=== PATIENT | male | born 1945 | race African-American/Black ===

== ENCOUNTER 2020-10-17 21:11 | Emergency (ER) | payer MEDICARE, MEDICAID ==
--- NOTE | 2020-10-17 22:54 | ER Document Report ---
ED Medical Screen (RME) - General Chief Complaint: Wrist Injury Stated Complaint: RIGHT HAND INJURY Time Seen by Provider: 10/17/20 22:45 Primary Care Provider: RAIMUNDO VALDEZ FNP [Primary Care Provider] - Follow up as needed Mode of Arrival: Wheelchair Notes: Patient is a 74-year-old male brought emergency room by family complaint of right wrist pain and swelling. Family states that patient was getting up to go to the bathroom on the way back to the bedroom he tripped and fell was a mechanical fall on an outstretched arm he has a deformity to his right wrist. Denies any other injuries or loss of consciousness. Physical examination shows patient to be a frail-appearing 74-year-old male though in no apparent distress does appear uncomfortable. Cardiac exam shows patient to have a regular rate and rhythm at 74 beats a minute. No auscultation of any murmurs. Lungs: Bilateral breath sounds decreased throughout no rhonchi rales or wheeze. Upper extremity right side. Examination shows patient to have a deformity at the distal portion of the radius and ulna moderate swelling with a slight apparent dorsal angulation but no broken skin no sign of a open fracture. 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 I have greeted and performed a rapid initial assessment of this patient. A comprehensive ED assessment and evaluation of the patient, analysis of test results and completion of the medical decision making process will be conducted by additional ED providers. Dictation of this chart was performed using voice recognition software; therefore, there may be some unintended grammatical errors. We are placing patient in a arm board to give him some support until after x- rays can be obtained. I am placing patient in the back at this time because I believe that this may be one that he has to be sedated and have a reduction. - Related Data Allergies/Adverse Reactions: No Known Allergies Allergy (Verified 10/17/20 22:45) Home Medications: unable to recall Past Medical History - Social History Frequency of alcohol use: None Drug Abuse: None - Past Medical History Cardiac Medical History: Reports: Hx Hypercholesterolemia, Hx Hypertension Neurological Medical History: Reports: Hx Seizures Endocrine Medical History: Denies: Hx Diabetes Mellitus Type 1, Hx Diabetes Mellitus Type 2 Psychiatric Medical History: Reports: Hx Depression - Immunizations Hx Diphtheria, Pertussis, Tetanus Vaccination: Yes Physical Exam - Vital signs Vitals: Temp Pulse Resp BP Pulse Ox 98.2 F 74 18 145/73 H 99 10/17/20 21:39 10/17/20 21:39 10/17/20 21:39 10/17/20 21:39 10/17/20 21:39 Course - Vital Signs Vital signs: Temp Pulse Resp BP Pulse Ox 98.2 F 74 18 145/73 H 99 10/17/20 21:39 10/17/20 21:39 10/17/20 21:39 10/17/20 21:39 10/17/20 21:39 Doctor's Discharge - Discharge Referrals: RAIMUNDO VALDEZ FNP [Primary Care Provider] - Follow up as needed
[2020-10-17] MEDS ORDERED: HYDROCODONE/ACETAMINOPHEN 5-325 MG TABLET PO ONE (22:55)
[2020-10-17] MEDS ORDERED: HYDROCODONE/ACETAMINOPHEN 5-325 MG TABLET ONE (22:56)
--- NOTE | 2020-10-17 23:45 | RADIOLOGY REPORT (SQ) ---
EXAM DESCRIPTION: X-ray right wrist 3 views COMPLETED DATE/TME: 10/17/2020 23:11 CLINICAL HISTORY: 74 years, Male, Deformity wrist fracture COMPARISON: None. NUMBER OF VIEWS: TECHNIQUE: LIMITATIONS: None. FINDINGS: There is fracture of the distal radius, with dorsal angulation. I see no additional fractures. Mineralization of bone appears normal. IMPRESSION: Fracture of the distal radius. copyright 2010 [facility]- All Rights Reserved
--- NOTE | 2020-10-18 01:52 | ER Document Report ---
ED General - General Chief Complaint: Wrist Injury Stated Complaint: RIGHT HAND INJURY Time Seen by Provider: 10/17/20 22:45 Primary Care Provider: RAIMUNDO VALDEZ FNP [Primary Care Provider] - Follow up as needed CANDY FONSECA DO [ACTIVE STAFF] - Follow up as needed Mode of Arrival: Wheelchair - HPI Notes: Chief Complaint: Right wrist pain Historian: History obtained from patient and son HPI: This is a 74-year-old male presents to the ER with his son complaining of right wrist pain after a fall at home this evening. Patient was walking to the bathroom and tripped over a child's toy and fell on outstretched hand. No head injury or loss of consciousness. Pain diffusely to the wrist. No open wounds. Denies any other injuries. No treatments tried. ROS: Constitutional: no fevers. HEENT: no KOHLI, sore throat, or vision changes. CV: no chest pain or palpitations. Resp: no cough or SOB. GI: no abdominal pain, or n/v/d. : no dysuria, hematuria, or incont. MSK: Right wrist pain and swelling Skin: no rashes or itching. Neuro: no seizures, weakness, numbness, or confusion. Hematological: no ecchymosis or easy bleeding. Endocrine: no polyuria/polydipsia, no heat/cold intolerance. Psych: no SI/HI, AH/VH or memory loss. PMHx: Reviewed and agree as charted by RN. PSHx: Reviewed and agree as charted by RN. SOCHx: Reviewed and agree as charted by RN. FHX: No significant familial comorbid conditions directly related to patient complaint Current Medications: Reviewed and agree with the patient medications as charted by the RN. Allergies: Reviewed and agree with the listed allergies as charted by the RN Physical Exam: Vitals: Reviewed in chart as documented by RN. General: Alert and in NAD. Head: Normocephalic; atraumatic. Negative hemotympanums bilateral no otorrhea no rhinorrhea. Eyes: PERRLA, Conjunctivae clear sclerae non-icteric bilat ENT: no soft palate swelling or uvular deviation Neck: trachea midline, no unilateral swelling/tenderness/lymphadenopathy CV: RRR, no M/R/G; symmetric distal pulses Resp: respirations even and unlabored, CTA bilat. GI: abd soft and nondistended. NTTP. normal BS. no masses/HSM. no CVAT bilat MSK: RUE-mild diffuse swelling to the dorsum of the wrist no obvious deformity, no open wounds. Diffuse tenderness. Radial pulse 2+. Cap refill less than 3 seconds distally. Patient able to range all digits. Limited range of motion due to pain. Full range of motion of elbow and shoulder. Intact distally. None CTL spine tenderness or deformity. Skin: warm, moist, good turgor. no rash/lesions Neuro: Alert and oriented X 4. following CN 2-12 intact. no unilateral weakness/numbness Psych: No SI/HI or AH/VH. ED Results: Medical Decision-Making: Medical Decision-making/Differential Diagnosis: Consider various etiologies including but not limited to skin/soft tissue structure injury, MSK injury, strain/sprain, fracture, dislocation, bursitis, tendonitis, contusion, ect Plan-x-ray wrist obtained obvious distal radius fracture. Very mild mild displacement does not appear intra-articular patient is neurovascularly intact.. Does not appear to benefit from any major reduction. Plan to place a sugar tong splint and sling and refer patient to orthopedics for follow-up. Will send pain medication for the patient instructed him to rice and be nonweightbearing at home with right upper extremity. Return factors discussed. This course of action was discussed with the patient and/or family. They were amenable to this, verbalized understanding, and were without further questions. - Related Data Allergies/Adverse Reactions: No Known Allergies Allergy (Verified 10/17/20 22:45) Home Medications: unable to recall Past Medical History - Social History Smoking Status: Former Smoker Frequency of alcohol use: None Drug Abuse: None Family History: Reviewed & Not Pertinent Patient has homicidal ideation: No - Past Medical History Cardiac Medical History: Reports: Hx Hypercholesterolemia, Hx Hypertension Neurological Medical History: Reports: Hx Seizures Endocrine Medical History: Denies: Hx Diabetes Mellitus Type 1, Hx Diabetes Mellitus Type 2 Psychiatric Medical History: Reports: Hx Depression - Immunizations Hx Diphtheria, Pertussis, Tetanus Vaccination: Yes Physical Exam - Vital signs Vitals: Temp Pulse Resp BP Pulse Ox 98.2 F 74 18 145/73 H 99 10/17/20 21:39 10/17/20 21:39 10/17/20 21:39 10/17/20 21:39 10/17/20 21:39 Course - Vital Signs Vital signs: Temp Pulse Resp BP Pulse Ox 98.2 F 74 18 145/73 H 99 10/17/20 21:39 10/17/20 21:39 10/17/20 21:39 10/17/20 21:39 10/17/20 21:39 - Laboratory Results Critical Laboratory Results Reviewed: No Critical Results - Radiology Results Critical Radiology Results Reviewed: No Critical Results Discharge - Discharge Clinical Impression: Fall Qualifiers: Encounter type: initial encounter Qualified Code(s): W19.XXXA - Unspecified fall, initial encounter Right wrist fracture Qualifiers: Encounter type: initial encounter Fracture type: closed Qualified Code(s): S62.101A - Fracture of unspecified carpal bone, right wrist, initial encounter for closed fracture Condition: Stable Disposition: HOME, SELF-CARE Additional Instructions: call orthopedics- Dr Fonseca on Tuesday to schedule appointment for follow that week. keep splint clean and dry. no weight bearing or lifting w/ right hand. rest, ice, and elevate wrist. ice 20 minutes every 1-2 hours. may also take motrin 600mg every 8 hours. return to the ER if your condition worsens. Prescriptions: Hydrocodone/Acetaminophen [[place] 5-325 mg Tablet] 1 tab PO Q6HP PRN #12 tablet PRN Reason: Referrals: RAIMUNDO VALDEZ FNP [Primary Care Provider] - Follow up as needed CANDY FONSECA DO [ACTIVE STAFF] - Follow up as needed
[2020-10-18 02:28] VITALS: BP 159/74
== END 2020-10-18 02:27 | disposition home or self-care (01) ==
LOC: ER 21:11
DX: S62.101A Fracture of unspecified carpal bone, right wrist, initial encounter for closed fracture (principal); W01.0XXA Fall on same level from slipping, tripping and stumbling without subsequent striking against object, initial encounter; Y92.009 Unspecified place in unspecified non-institutional (private) residence as the place of occurrence of the external cause; E78.00 Pure hypercholesterolemia, unspecified; I10 Essential (primary) hypertension
CPT/HCPCS: 99283; 73110; A9270

== ENCOUNTER 2020-11-15 23:01 | Inpatient (IN) | payer MEDICARE, MEDICAID ==
[2020-11-15 23:54] LABS: ABSOLUTE EOSINOPHILS # (AUTO) 0.1 10^3/uL (0.0-0.6); ABSOLUTE LYMPHOCYTES (AUTO) 0.5 10^3/uL (0.5-4.7); ABSOLUTE NEUT (AUTO) 6.8 10^3/uL (1.7-8.2); BASOPHILS % (AUTO) 0.2 % (0-2); HEMATOCRIT 37.2 % (37.9-51.0); HEMOGLOBIN 12.2 g/dL (13.5-17.0); LYMPHOCYTES % (AUTO) 6.4 % (13-45); MEAN CORPUSCULAR HEMOGLOBIN 27.5 pg (27.0-33.4); MEAN CORPUSCULAR HGB CONC 32.8 g/dL (32.0-36.0); MEAN CORPUSCULAR VOLUME 84 fl (80-97); MONOCYTES % (AUTO) 0.7 % (3-13); PLATELET COUNT 243 10^3/uL (150-450); RED BLOOD COUNT 4.44 10^6/uL (4.35-5.55); RED CELL DISTRIBUTION WIDTH 16.4 % (11.5-14.0); SEGMENTED NEUTROPHILS % (AUTO) 91.7 % (42-78); TOTAL CELLS COUNTED % (AUTO) 100 %; WHITE BLOOD COUNT 7.4 10^3/uL (4.0-10.5)
[2020-11-16] MEDS ORDERED: LEVETIRACETAM 1000 MG/NACL-ISO 1,000 MG/100 ML RTUPB IV ONE
--- NOTE | 2020-11-16 00:02 | ER Document Report ---
ED General - General Chief Complaint: Seizure Stated Complaint: SEIZURE/AMS Time Seen by Provider: 11/15/20 23:52 Notes: Patient is a 75-year-old male who comes to the emergency department for chief complaint of a seizure. Patient does have a history of epilepsy, patient reportedly had a seizure that lasted between 2 and 5 minutes per family members who were witnessing. No fall or trauma reported. EMS states that upon arrival patient was confused and postictal but has since returned to baseline. Patient has no complaints but patient was found to have initial oxygen saturation of 84% on room air. Patient denies oxygen use at home, smoking, COPD, asthma, shortness of breath, cough, fever, chest pain, or any current complaints. He also denies headache. No vomiting reported. Patient has a history of epilepsy and takes Keppra, hypertension, hyperlipidemia. He lives at home with family. - Related Data Allergies/Adverse Reactions: No Known Allergies Allergy (Verified 11/16/20 02:35) Past Medical History - General Information source: Patient - Social History Smoking Status: Former Smoker Drug Abuse: None Lives with: Family Family History: Reviewed & Not Pertinent - Past Medical History Cardiac Medical History: Reports: Hx Hypercholesterolemia, Hx Hypertension Neurological Medical History: Reports: Hx Seizures Endocrine Medical History: Denies: Hx Diabetes Mellitus Type 1, Hx Diabetes Mellitus Type 2 Psychiatric Medical History: Reports: Hx Depression - Immunizations Hx Diphtheria, Pertussis, Tetanus Vaccination: Yes Review of Systems - Review of Systems Constitutional: No symptoms reported EENT: No symptoms reported Cardiovascular: No symptoms reported Respiratory: See HPI Gastrointestinal: No symptoms reported Genitourinary: No symptoms reported Male Genitourinary: No symptoms reported Musculoskeletal: No symptoms reported Skin: No symptoms reported Hematologic/Lymphatic: No symptoms reported Neurological/Psychological: See HPI Physical Exam - Vital signs Vitals: Resp 19 11/15/20 23:00 - Notes Notes: GENERAL: Alert, interacts well. No acute distress. HEAD: Normocephalic, atraumatic. EYES: Pupils equal, round, and reactive to light. Extraocular movements intact. ENT: Oral mucosa moist, tongue midline and uninjured. Oropharynx unremarkable. Airway patent. NECK: Full range of motion. Supple. Trachea midline. No lymphadenopathy. LUNGS: Decreased breath sounds bilaterally but more significantly on the left. No tachypnea or labored breathing. Speaks without difficulty HEART: Regular rate and rhythm. No murmur ABDOMEN: Soft, non-tender. Non-distended. EXTREMITIES: Moves all 4 extremities spontaneously. No edema, normal radial and dorsalis pedis pulses bilaterally. No cyanosis. BACK: no cervical, thoracic, lumbar midline tenderness. No saddle anesthesia, normal distal neurovascular exam. Moves all extremities in full range of motion. NEUROLOGICAL: Alert and oriented x3. Normal speech. Cranial nerves II through XII grossly intact. Strength 5/5 in all extremities. PSYCH: Normal affect, normal mood. SKIN: Warm, dry, normal turgor. No rashes or lesions noted. Course - Re-evaluation Re-evalutation: On my exam patient is alert, conversational, oriented, cooperative. He does not have any signs of trauma, no reported trauma, however he is hypoxic in the 80s and he does have decreased breath sounds. Will obtain chest x-ray. Could be aspiration or pre-existing problem. Patient denies headache or any current complaints. Chest x-ray shows large left-sided pneumothorax, patient was immediately transferred to trauma bay, he has not had any change on my evaluation again, he is not tachycardic, oxygen is the same. Alerted Dr. Tilley who states he will place a chest tube. Chest tube placed by Dr. Tilley and Dr. De La Cruz, confirmation shows near resolution and good placement. CBC, chemistry nonspecific. CAT scans performed because of concern worse trauma based on the pneumothorax. There was a delay in the CAT scans being performed, however CAT scan of the head, neck without concerning findings. CAT scan of the chest shows small pneumothorax still existing, acute fractures of the left seventh, eighth, ninth ribs. No acute findings otherwise. Patient without decompensation on the monitor. I have discussed with daughter at length. Patient still having bloody output, has had about 1300 mL output. Patient desaturates to about 92% on room air but I suspect this is secondary to COPD. 11/16/20 04:30 Called and discussed with Dr. De La Cruz, general surgery, he is currently involved in surgery and will have to be contacted later. Dr. De La Cruz called back, reviewed imaging, he recommends that because patient is elderly, was found down with seizure, has multiple comorbidities, that p atient be admitted to the medical team with surgical consult. 11/16/20 04:[address] Jeffery, he states he will evaluate the patient. Dr. Jeffery accepted patient to [facility] full admission. - Vital Signs Vital signs: Temp Pulse Resp BP Pulse Ox 97.9 F 15 128/69 H 94 11/16/20 02:46 11/16/20 05:01 11/16/20 05:01 11/16/20 05:01 - Laboratory Results Result Diagrams: 11/15/20 23:23 11/16/20 00:29 Laboratory Results Interpreted: 11/15/20 11/15/20 11/16/20 23:23 23:23 00:29 Hgb 12.2 L Hct 37.2 L RDW 16.4 H Lymph % (Auto) 6.4 L [place] % (Auto) 0.7 L Absolute Monos (auto) 0.0 L Seg Neutrophils % 91.7 H Carbonic Acid 1.01 L ABG pCO2 33.7 L ABG pO2 63.3 L ABG Total CO2 22.4 L ABG O2 Saturation 92.8 L Chloride 110 H Urine Protein Urine Blood Urine Nitrite Ur Leukocyte Esterase 11/16/20 03:54 Hgb Hct RDW Lymph % (Auto) [place] % (Auto) Absolute Monos (auto) Seg Neutrophils % Carbonic Acid ABG pCO2 ABG pO2 ABG Total CO2 ABG O2 Saturation Chloride Urine Protein 30 H Urine Blood LARGE H Urine Nitrite POSITIVE H Ur Leukocyte Esterase SMALL H Critical Laboratory Results Reviewed: No Critical Results - Radiology Results Critical Radiology Results Reviewed: Yes Attending or Supervising Physician who Reviewed Radiology: Critical Care Note - Critical Care Note Total time excluding time spent on procedures (mins): 40 - Traumatic pneumoth orax, hypoxia Comments: Please allow 40 minutes of critical care time for evaluation and management of patient with traumatic pneumothorax and hypoxia. Interventions included oxygen therapy, treatment for epilepsy, treatment for UTI. Time spent performing consultation with surgery, performing multiple reevaluations, and time spent discussing with family. Time spent discussing with surgery and hospitalist multiple times for admission. Discharge - Discharge Clinical Impression: Seizure Traumatic pneumothorax Qualifiers: Encounter type: initial encounter Qualified Code(s): S27.0XXA - Traumatic pneumothorax, initial encounter Multiple rib fractures Qualifiers: Encounter type: initial encounter Fracture type: closed Laterality: left Qualified Code(s): S22.42XA - Multiple fractures of ribs, left side, initial encounter for closed fracture Urinary tract infection Qualifiers: Urinary tract infection type: site unspecified Hematuria presence: with hematuria Qualified Code(s): N39.0 - Urinary tract infection, site not specified Condition: Stable Disposition: ADMITTED INPATIENT Admitting Provider: Unit Admitted: [facility]
[2020-11-16 00:19] LABS: ARTERIAL BLOOD BASE EXCESS -2.5 mmol/L; ARTERIAL BLOOD FIO2 4 L; ARTERIAL BLOOD H2CO3 1.01 mmol/L (1.05-1.35); ARTERIAL BLOOD HCO3 21.3 mmol/L (20-24); ARTERIAL BLOOD O2 SATURATION 92.8 % (94-98); ARTERIAL BLOOD PCO2 33.7 mmHg (35-45); ARTERIAL BLOOD PH 7.42 (7.35-7.45); ARTERIAL BLOOD PO2 63.3 mmHg (80-100); ARTERIAL BLOOD TOTAL CO2 22.4 mmol/L (23-27)
--- NOTE | 2020-11-16 00:49 | RADIOLOGY REPORT (SQ) ---
EXAM DESCRIPTION: Site: CHEST SINGLE VIEW RP: XR CHEST 1 VIEW CLINICAL HISTORY: 75 years Male; hypoxia; COMPARISON: None. FINDINGS: Lungs: Lungs are clear, with no focal infiltrate, pneumothorax, or pleural effusion. There is a large left pneumothorax with collapse of the left lower lobe and much of the left upper lobe. Right lung remains clear, without pneumothorax or pleural effusion. Mediastinum: No shift or widening. Bones: Bony structures are unremarkable. IMPRESSION: 1. Large left pneumothorax, estimated 60%. No mediastinal shift.
[2020-11-16 00:56] LABS: ALBUMIN 3.6 g/dL (3.5-5.0); ALKALINE PHOSPHATASE 113 U/L (38-126); ANION GAP 12 (5-19); ASPARTATE AMINO TRANSFERASE 36 U/L (17-59); BILIRUBIN,DIRECT 0.4 mg/dL (0.0-0.4); BILIRUBIN,TOTAL 0.7 mg/dL (0.2-1.3); BLOOD UREA NITROGEN 18 mg/dL (7-20); CALCIUM 9.1 mg/dL (8.4-10.2); CARBON DIOXIDE 22 mmol/L (22-30); CHLORIDE 110 mmol/L (98-107); GLUCOSE 80 mg/dL (75-110); POTASSIUM 3.7 mmol/L (3.6-5.0); TOTAL PROTEIN 7.1 g/dL (6.3-8.2)
[2020-11-16 00:59] LABS: ALCOHOL < 10 mg/dL (NONE DETECTED)
[2020-11-16] MEDS ORDERED: LIDOCAINE 1% INJ (10 MG/ML) 10 ML MDV INJ ONE (01:08)
[2020-11-16] MEDS ORDERED: ETOMIDATE INJ/PF 20 MG/10 ML SDV IV ONE (01:08)
--- NOTE | 2020-11-16 02:17 | RADIOLOGY REPORT (SQ) ---
CHEST X-RAY 1 VIEW on 11/16/2020 at 1:44 AM CLINICAL INDICATION: Status post left chest tube placement COMPARISON: 11/16/2020 at 12:18 AM FINDINGS: There is a new left chest tube in place with essential resolution of the prior left pneumothorax. The right lateral chest and right costophrenic angle is not imaged on this exam. There is persistent left lower lung opacity consistent with atelectasis and/or pneumonia. There is a rounded lucency apparently in the left lower lung that may represent bulla but also could represent cavitary abnormality. Consider CT follow-up. Heart is within normal limits for size. Vascular calcification is noted in the aorta. IMPRESSION: 1. New left chest tube in place with resolution of left pneumothorax. 2. Continued left lower lung atelectasis and/or pneumonia. 3. Rounded lucency in the left lower lung that may represent a bulla or cavitary abnormality. Consider CT follow-up.
--- NOTE | 2020-11-16 02:30 | Operative Report ---
Operative Report DATE OF SURGERY: 11/16/20 PREOPERATIVE DIAGNOSIS: 1. Large left pneumothorax. 2. Status post seizure POSTOPERATIVE DIAGNOSIS: Same OPERATION: Placement of 26 Belgian thoracostomy tube and interpretation of postoperative chest x-ray SURGEON: DANYA DE LA CRUZ ANESTHESIA: Local TISSUE REMOVED OR ALTERED: None COMPLICATIONS: None ESTIMATED BLOOD LOSS: Scant INTRAOPERATIVE FINDINGS: See below PROCEDURE: Dr. De La Cruz was in the emergency department assessing other patients when he discovered a emergency department team was attempting to place a chest tube in the above named patient. It was apparent that assistance was required. Findings were significant for patient laying supine, minimally responsive, with vital signs present, with a small operative incision made in the left lateral chest approximately ICS 7, mid axillary line. The existing 26 Belgian chest tube was inserted subcutaneously into the axilla. Using the same skin incision, a opening was made in the intercostal space with a Felicita clamp, there was immediate gush of air. The chest tube was now inserted into the left pleural space, with the tip ending in the apex, and the sentinel approximately 10 cm from the skin. The chest tube is secured to the skin including a pursestring wrap with 0 silk suture. Appropriate chest tube dressing was applied. The chest tube was attached to Pleur-evac, with suction, with resultant evacuation of a significant amount of air. Approximately 150 cc of serous pleural fluid was evacuated as well. Portable supine chest x-ray obtained showing expansion of the left lung, with a thoracostomy tube in appropriate position. Of note the chest x-ray was obtained in the supine position, therefore it is uncertain whether residual pneumothorax remained. Care will be handed off to the hospitalist service with surgery consulting.
--- NOTE | 2020-11-16 03:54 | RADIOLOGY REPORT (SQ) ---
CLINICAL HISTORY: ?trauma during seizure COMPARISON: 08/16/2017. TECHNIQUE: CT HEAD WITHOUT IV CONTRAST on 11/16/2020 1:32 AM FACTORY REPRESENTATIVE This exam was performed according to our departmental dose-optimization program, which includes automated exposure control, adjustment of the mA and/or kV according to patient size and/or use of iterative reconstruction technique. FINDINGS: There is no acute hemorrhage, mass effect or midline shift. There is bifrontal encephalomalacia. There is mild posterior right cerebellar encephalomalacia. There is no hydrocephalus. There is mild diffuse cerebral atrophy. The calvarium is intact. Orbits and globes are unremarkable. The paranasal sinuses are clear. Mastoid air cells are clear. IMPRESSION: No acute intracranial findings.
--- NOTE | 2020-11-16 04:00 | RADIOLOGY REPORT (SQ) ---
CLINICAL HISTORY: ?trauma during seizure COMPARISON: None. TECHNIQUE: CT CERVICAL SPINE WITHOUT IV CONTRAST on 11/16/2020 1:32 AM MEDICAL SALES CONSULTANT This exam was performed according to our departmental dose-optimization program, which includes automated exposure control, adjustment of the mA and/or kV according to patient size and/or use of iterative reconstruction technique. FINDINGS: There is no acute fracture. Vertebral body heights are preserved. Alignment is anatomic. There is moderate narrowing of the C3-4, C4-5 and C6-7 discs. There is severe narrowing of the C5-6 disc. The upper lungs, there is a minimal apical pneumothorax with a chest tube in place. There is moderate upper lung emphysema. IMPRESSION: No acute fracture or subluxation.
--- NOTE | 2020-11-16 04:04 | RADIOLOGY REPORT (SQ) ---
CLINICAL HISTORY: ?trauma during seizure COMPARISON: None. TECHNIQUE: CT CHEST WITH IV CONTRAST on 11/16/2020 1:32 AM PICKLING GRADER. MIPS reconstructions were generated. This exam was performed according to our departmental dose-optimization program, which includes automated exposure control, adjustment of the mA and/or kV according to patient size and/or use of iterative reconstruction technique. MIP images were generated. FINDINGS: Thoracic aorta is normal in course and caliber without aneurysm or dissection. Pulmonary arteries are adequately opacified without acute or chronic filling defects. The heart is normal in size. There is no pericardial effusion. Intrathoracic lymph nodes are not enlarged. There is a small left pleural effusion. There is a tiny left pneumothorax with left chest tube in place. There is subcutaneous air along the left lateral chest wall. Central airways are patent. There is moderate mostly upper lung centrilobular emphysema. There is airspace disease and atelectasis involving much of the left lower lobe as well as the posterior left upper lobe. There is a pneumatocele in the lower left lung measuring 3.8 cm. There are no acute abnormalities within the limited images of the upper abdomen. There are fractures of the posterior lateral left seventh, eighth and ninth ribs. IMPRESSION: Left lower rib fractures with small hydropneumothorax with a chest tube in place. Probable left basilar pulmonary contusion and pneumatocele.
[2020-11-16 04:15] LABS: APPEARANCE,URINE CLOUDY; BILIRUBIN,URINE NEGATIVE (NEGATIVE); COLOR,URINE YELLOW; GLUCOSE, URINE NEGATIVE (NEGATIVE); KETONES,URINE NEGATIVE (NEGATIVE); LEUKOCYTE ESTERASE,URINE SMALL (NEGATIVE); NITRITE,URINE POSITIVE (NEGATIVE); PROTEIN,URINE 30 mg/dL (NEGATIVE); URINE SPECIFIC GRAVITY 1.033; UROBILINOGEN,URINE NEGATIVE mg/dL (<2.0)
[2020-11-16] MEDS ORDERED: CEFTRIAXONE 1 GM/D5W RTU 1 GM/50 ML RTUPB IV ONE (04:32)
[2020-11-16] MEDS ORDERED: NORMAL SALINE 1000 ML 1,000 ML IV ONE (04:32)
[2020-11-16] MEDS ORDERED: ONDANSETRON HCL INJ/PF 4 MG/2 ML SDV IV PRN (06:15)
[2020-11-16] MEDS ORDERED: ACETAMINOPHEN 325 MG TABLET PO PRN (06:15)
[2020-11-16] MEDS ORDERED: MORPHINE SULFATE 10 MG/ML INJ IV PRN (06:39)
--- NOTE | 2020-11-16 06:49 | PDOC H&P ---
History of Present Illness Admission Date/PCP: 11/16/20 06:17 PERLA BECK Patient complains of: Witnessed seizure History of Present Illness: MELBA MCKEON JR is a 75 year old male with a history of seizure disorder and hypertension who presents to the ED with a plan episode of witnessed seizure. Patient was noted to have an episode of seizure which lasted for about 3 to 5 minutes while she was sitting on his chair last night pain daughter called EMS immediately and was brought into the emergency department for further evaluation. On arrival to the ED patient was in a postictal phase that few minutes later he came back to his baseline according to his daughter was at his bedside. His daughter stated that patient never had a fall, head injury, or vomiting. During further evaluation at the ED patient was noted to have low oxygen saturation of in the mid 80s while in room air but he was not in respiratory distress, was not using accessory respiratory muscles and his other vital signs where stable. He had decreased air entry on the left hemichest and there was concern for possible aspiration during the episode of seizure and chest x-ray was obtained for further evaluation. Chest x-ray showed large left- sided pneumothorax involving about 60% and chest tube was inserted by surgery at the ED. Follow-up chest x-ray done showed interval expansion of his lungs. Currently patient is alert and oriented but unable to give detailed history due to sedation hold anesthesia used for procedure. He denies shortness of breath, dizziness, palpitation, nausea or vomiting. He is requiring 2 L intranasal oxygen to maintain a saturation of around mid 90s. Past Medical History Cardiac Medical History: Reports: Hyperlipidema, Hypertension Neurological Medical History: Reports: Seizures Endocrine Medical History: Denies: Diabetes Mellitus Type 1, Diabetes Mellitus Type 2 Psychiatric Medical History: Reports: Depression Social History Information Source: Patient, Relative, Emergency Med Personnel Lives with: Family Smoking Status: Never Smoker - Advance Directive Resuscitation Status: Full Code Family History Family History: Reviewed & Not Pertinent Parental Family History Reviewed: Yes Children Family History Reviewed: Yes Sibling(s) Family History Reviewed.: Yes Medication/Allergy Home Medications: Amlodipine Besylate [Norvasc 10 mg Tablet] 10 mg PO DAILY 11/16/20 Atorvastatin Calcium [Lipitor 20 mg Tablet] 20 mg PO QHS 11/16/20 Cetirizine HCl [Zyrtec 10 mg Tablet] 10 mg PO DAILY 11/16/20 Fluoxetine HCl 10 mg PO DAILY 11/16/20 Hydralazine HCl [Apresoline 25 mg Tablet] 25 mg PO BID 11/16/20 Levetiracetam [Keppra] 500 mg PO BID 11/16/20 Allergies/Adverse Reactions: No Known Allergies Allergy (Verified 11/16/20 02:35) Review of Systems ROS unobtainable: Due to mental status Constitutional: ABSENT: chills, fever(s), headache(s), weight gain, weight loss Eyes: ABSENT: visual disturbances Cardiovascular: ABSENT: chest pain, dyspnea on exertion, edema, orthropnea, palpitations Respiratory: PRESENT: as per HPI Gastrointestinal: ABSENT: abdominal pain, constipation, diarrhea, hematemesis, hematochezia, nausea, vomiting Genitourinary: ABSENT: dysuria, hematuria Musculoskeletal: ABSENT: joint swelling Integumentary: ABSENT: rash, wounds Neurological: PRESENT: as per HPI Endocrine: ABSENT: cold intolerance, heat intolerance, polydipsia, polyuria Hematologic/Lymphatic: ABSENT: easy bleeding, easy bruising Physical Exam Vital Signs: Temp Pulse Resp BP Pulse Ox 97.9 F 15 128/69 H 94 11/16/20 02:46 11/16/20 05:01 11/16/20 05:01 11/16/20 05:01 Intake & Output 11/14/20 11/15/20 11/16/20 06:59 06:59 06:59 Intake Total 1150 Balance 1150 Weight 47.8 kg Additional comments: GENERAL APPEARANCE: Patient is sleepy but easily arousable likely due to sedatives given during the procedure, in no acute distress HEENT: Normocephalic and atraumatic. No scleral icterus. Moist oral mucosa NECK: Supple. No lymphadenopathy or tenderness. No JVD CHEST: Chest tube in place on the left side. Has some mild tenderness on the left lower rib area LUNGS: Clear with good air entry bilaterally. No wheezing or crackles HEART: Regular rate and rhythm with normal S1 and S2. No murmurs, gallops, or rubs. ABDOMEN: Flat, soft, active bowel sounds, no direct or rebound tenderness. No organomegaly detected. EXTREMITIES: No cyanosis, clubbing, or edema. MUSCULOSKELETAL: No deformity, atrophy or swelling noted SKIN: Warm, dry, and well perfused. No lesions or rashes are noted. NEUROLOGIC: No focal sensory or motor deficits are noted. Results Laboratory Results: 11/15/20 23:23 11/16/20 00:29 11/15/20 11/15/20 11/15/20 23:23 23:23 23:23 WBC 7.4 RBC 4.44 Hgb 12.2 L Hct 37.2 L MCV 84 MCH 27.5 MCHC 32.8 RDW 16.4 H Plt Count 243 Seg Neutrophils % 91.7 H Carbonic Acid 1.01 L HCO3/H2CO3 Ratio 21:1 ABG pH 7.42 ABG pCO2 33.7 L ABG pO2 63.3 L ABG HCO3 21.3 ABG O2 Saturation 92.8 L ABG Base Excess -2.5 FiO2 4 L Sodium Cancelled Potassium Cancelled Chloride Cancelled Carbon Dioxide Cancelled Anion Gap Cancelled BUN Cancelled Creatinine Cancelled Est GFR ( Amer) Cancelled Est GFR (Non-Af Amer) Cancelled Glucose Cancelled Calcium Cancelled Magnesium Cancelled Total Bilirubin Cancelled AST Cancelled Alkaline Phosphatase Cancelled Total Protein Cancelled Albumin Cancelled Urine Color Urine Appearance Urine pH Ur Specific [place] Urine Protein Urine Glucose (UA) Urine Ketones Urine Blood Urine Nitrite Ur Leukocyte Esterase Urine WBC (Auto) Urine RBC (Auto) 11/16/20 11/16/20 00:29 03:54 WBC RBC Hgb Hct MCV MCH MCHC RDW Plt Count Seg Neutrophils % Carbonic Acid HCO3/H2CO3 Ratio ABG pH ABG pCO2 ABG pO2 ABG HCO3 ABG O2 Saturation ABG Base Excess FiO2 Sodium 143.8 Potassium 3.7 Chloride 110 H Carbon Dioxide 22 Anion Gap 12 BUN 18 Creatinine 0.90 Est GFR ( Amer) > 60 Est GFR (Non-Af Amer) Glucose 80 Calcium 9.1 Magnesium 2.0 Total Bilirubin 0.7 AST 36 Alkaline Phosphatase 113 Total Protein 7.1 Albumin 3.6 Urine Color YELLOW Urine Appearance CLOUDY Urine pH 5.0 Ur Specific [place] 1.033 Urine Protein 30 H Urine Glucose (UA) NEGATIVE Urine Ketones NEGATIVE Urine Blood LARGE H Urine Nitrite POSITIVE H Ur Leukocyte Esterase SMALL H Urine WBC (Auto) 39 Urine RBC (Auto) >182 11/16/20 00:29 Troponin I 0.014 Impressions: Chest X-Ray 11/16/20 01:29 IMPRESSION: 1. New left chest tube in place with resolution of left pneumothorax. 2. Continued left lower lung atelectasis and/or pneumonia. 3. Rounded lucency in the left lower lung that may represent a bulla or cavitary abnormality. Consider CT follow-up. Cervical Spine CT 11/16/20 01:32 IMPRESSION: No acute fracture or subluxation. Chest CT 11/16/20 01:32 IMPRESSION: Left lower rib fractures with small hydropneumothorax with a chest tube in place. Probable left basilar pulmonary contusion and pneumatocele. Head CT 11/16/20 01:32 IMPRESSION: No acute intracranial findings. Assessment and Plan - Diagnosis (1) Traumatic pneumothorax Qualifiers: Encounter type: initial encounter Qualified Code(s): S27.0XXA - Traumatic pneumothorax, initial encounter Is this a current diagnosis for this admission?: Yes Plan: Patient presents after an episode of seizure and likely had traumatic incident following that He also had right wrist fracture from a fall about 2 weeks back Was saturating mid 80s on room air on presentation Chest x-ray showed a large left-sided pneumothorax Status post chest tube insertion at the ED CT chest obtained following chest tube insertion showed interval expansion of the left lung and left lower lip fractures Continue chest tube care, avail incentive spirometry at bedside Surgery on board and follow-up with recommendations Consider pulmonary consult (2) Multiple rib fractures Qualifiers: Encounter type: initial encounter Fracture type: closed Laterality: left Qualified Code(s): S22.42XA - Multiple fractures of ribs, left side, initial encounter for closed fracture Is this a current diagnosis for this admission?: Yes Plan: Likely due to injury during seizure episode Currently s/p chest tube insertion for pneumothorax Continue optimally controlling pain Surgery also following and follow-up with recommendations (3) Seizure Is this a current diagnosis for this admission?: Yes Plan: Patient presents after an episode of seizure which lasted for 3 to 5 minutes at home Currently alert and oriented Patient with given a loading dose of Keppra at the ED Continue Keppra 500 mg IV twice daily Keppra level pending Continue seizure precaution, fall precaution and aspiration precaution (4) Urinary tract infection Qualifiers: Urinary tract infection type: site unspecified Hematuria presence: with hematuria Qualified Code(s): N39.0 - Urinary tract infection, site not specified; R31.9 - Hematuria, unspecified Is this a current diagnosis for this admission?: Yes Plan: UA shows signs of urinary tract infection Currently patient is on ceftriaxone Follow-up with blood culture and urine culture and sensitivity and adjust antibiotic as necessary (5) Hypertension Is this a current diagnosis for this admission?: Yes Plan: Blood pressure now is within acceptable range We will continue home medications - Time Time Spent with patient: 35 or more minutes Total Critical Time (Minutes): 55 Medications reviewed and adjusted accordingly: Yes Anticipated Discharge Disposition: Home, Self Care Anticipated Discharge Timeframe: within 72 hours - Inpatient Certification Based on my medical assessment, after consideration of the patient's comorbidities, presenting symptoms, or acuity I expect that the services needed warrant INPATIENT care.: Yes I certify that my determination is in accordance with my understanding of Medicare's requirements for reasonable and necessary INPATIENT services [42 CFR 412.3e].: Yes Medical Necessity: Significant Comorbidiites Make Outpatient Treatment Too Risky, Need For IV Fluids, Need For Continuous Telemetry Monitoring, Need for Pain Control, Need for IV Antibiotics, Need for Surgery, Risk of Complication if Not Cared For in Hospital Post Hospital Care: D/C or Transfer Summary
[2020-11-16 09:22] LABS: HEMATOCRIT 33.1 % (37.9-51.0); HEMOGLOBIN 10.9 g/dL (13.5-17.0); MEAN CORPUSCULAR HEMOGLOBIN 27.2 pg (27.0-33.4); MEAN CORPUSCULAR VOLUME 83 fl (80-97); PLATELET COUNT 207 10^3/uL (150-450); RED CELL DISTRIBUTION WIDTH 16.5 % (11.5-14.0)
[2020-11-16] MEDS: RINGERS SOLUTION,LACTATED 1,000 ML IV PRN ×2 (09:22→23:05)
[2020-11-16 09:29] LABS: ALBUMIN 2.9 g/dL (3.5-5.0); ALKALINE PHOSPHATASE 85 U/L (38-126); ANION GAP 7 (5-19); ASPARTATE AMINO TRANSFERASE 25 U/L (17-59); BILIRUBIN,DIRECT 0.2 mg/dL (0.0-0.4); BILIRUBIN,TOTAL 0.4 mg/dL (0.2-1.3); BLOOD UREA NITROGEN 16 mg/dL (7-20); CALCIUM 8.4 mg/dL (8.4-10.2); CARBON DIOXIDE 25 mmol/L (22-30); CHLORIDE 109 mmol/L (98-107); GLUCOSE 110 mg/dL (75-110)
[2020-11-16] MEDS ORDERED: LEVETIRACETAM 750 MG in NORMAL SALINE 100 ML IV SCH (10:00)
[2020-11-16 10:06] LABS: WHITE BLOOD COUNT 18.8 10^3/uL (4.0-10.5)
[2020-11-16 10:08] LABS: ABSOLUTE LYMPHOCYTES# (MANUAL) 0.9 10^3/uL (0.5-4.7); ABSOLUTE MONOCYTES # (MANUAL) 0.6 10^3/uL (0.1-1.4); BAND NEUTROPHILS % (MANUAL) 9 % (3-5); BASOPHILS % (MANUAL) 0 % (0-2); EOSINOPHILS % (MANUAL) 0 % (0-6); LYMPHOCYTES % (MANUAL) 4 % (13-45); MONOCYTES % (MANUAL) 3 % (3-13); SEGMENTED NEUTROPHILS % (MAN) 83 % (42-78); TOTAL CELLS COUNTED 100
[2020-11-16 10:11] LABS: ANISOCYTOSIS 1+; OVALOCYTES 1+; PLATELET COMMENT ADEQUATE
[2020-11-16] MEDS: FAMOTIDINE 20 MG TABLET PO SCH ×2 (10:16→21:12)
--- NOTE | 2020-11-16 14:10 | PDOC PROGRESS REPORT ---
Subjective Date:: 11/16/20 Reason For Visit: PNEUMOTHORAX S/P CHEST TUBE INSERTION Patient is now 12 hours status post admission status post found down, fall, post seizure, with left pneumothorax, and posterior left rib fractures, hemodynamically stable. Now awake and following commands. Physical Exam Vital Signs: Temp Pulse Resp BP Pulse Ox 98.2 F 20 126/86 H 96 11/16/20 09:00 11/16/20 10:01 11/16/20 10:01 11/16/20 10:01 Intake & Output 11/15/20 11/16/20 11/17/20 06:59 06:59 06:59 Intake Total 1150 100 Balance 1150 100 Weight 47.8 kg General appearance: PRESENT: no acute distress Respiratory exam: PRESENT: other - Chest tube hooked to Pleur-evac, with a suction, no demonstrable airleak. No subcutaneous emphysema. Pulmonary toilet poor Results Laboratory Results: 11/16/20 08:50 11/16/20 08:50 11/15/20 11/15/20 11/15/20 23:23 23:23 23:23 WBC 7.4 RBC 4.44 Hgb 12.2 L Hct 37.2 L MCV 84 MCH 27.5 MCHC 32.8 RDW 16.4 H Plt Count 243 Seg Neutrophils % 91.7 H Carbonic Acid 1.01 L HCO3/H2CO3 Ratio 21:1 ABG pH 7.42 ABG pCO2 33.7 L ABG pO2 63.3 L ABG HCO3 21.3 ABG O2 Saturation 92.8 L ABG Base Excess -2.5 FiO2 4 L Sodium Cancelled Potassium Cancelled Chloride Cancelled Carbon Dioxide Cancelled Anion Gap Cancelled BUN Cancelled Creatinine Cancelled Est GFR ( Amer) Cancelled Est GFR (Non-Af Amer) Cancelled Glucose Cancelled Calcium Cancelled Magnesium Cancelled Total Bilirubin Cancelled AST Cancelled Alkaline Phosphatase Cancelled Total Protein Cancelled Albumin Cancelled Urine Color Urine Appearance Urine pH Ur Specific [place] Urine Protein Urine Glucose (UA) Urine Ketones Urine Blood Urine Nitrite Ur Leukocyte Esterase Urine WBC (Auto) Urine RBC (Auto) 11/16/20 11/16/20 11/16/20 00:29 03:54 08:50 WBC 18.8 H D RBC 4.00 L Hgb 10.9 L Hct 33.1 L MCV 83 MCH 27.2 MCHC 33.0 RDW 16.5 H Plt Count 207 Seg Neutrophils % Not Reportable Carbonic Acid HCO3/H2CO3 Ratio ABG pH ABG pCO2 ABG pO2 ABG HCO3 ABG O2 Saturation ABG Base Excess FiO2 Sodium 143.8 Potassium 3.7 Chloride 110 H Carbon Dioxide 22 Anion Gap 12 BUN 18 Creatinine 0.90 Est GFR ( Amer) > 60 Est GFR (Non-Af Amer) Glucose 80 Calcium 9.1 Magnesium 2.0 Total Bilirubin 0.7 AST 36 Alkaline Phosphatase 113 Total Protein 7.1 Albumin 3.6 Urine Color YELLOW Urine Appearance CLOUDY Urine pH 5.0 Ur Specific [place] 1.033 Urine Protein 30 H Urine Glucose (UA) NEGATIVE Urine Ketones NEGATIVE Urine Blood LARGE H Urine Nitrite POSITIVE H Ur Leukocyte Esterase SMALL H Urine WBC (Auto) 39 Urine RBC (Auto) >182 11/16/20 08:50 WBC RBC Hgb Hct MCV MCH MCHC RDW Plt Count Seg Neutrophils % Carbonic Acid HCO3/H2CO3 Ratio ABG pH ABG pCO2 ABG pO2 ABG HCO3 ABG O2 Saturation ABG Base Excess FiO2 Sodium 141.2 Potassium 4.0 Chloride 109 H Carbon Dioxide 25 Anion Gap 7 BUN 16 Creatinine 0.85 Est GFR ( Amer) > 60 Est GFR (Non-Af Amer) Glucose 110 Calcium 8.4 Magnesium Total Bilirubin 0.4 AST 25 Alkaline Phosphatase 85 Total Protein 6.0 L Albumin 2.9 L Urine Color Urine Appearance Urine pH Ur Specific [place] Urine Protein Urine Glucose (UA) Urine Ketones Urine Blood Urine Nitrite Ur Leukocyte Esterase Urine WBC (Auto) Urine RBC (Auto) 11/16/20 11/16/20 00:29 08:50 Creatine Kinase 124 Troponin I 0.014 Impressions: Chest X-Ray 11/16/20 01:29 IMPRESSION: 1. New left chest tube in place with resolution of left pneumothorax. 2. Continued left lower lung atelectasis and/or pneumonia. 3. Rounded lucency in the left lower lung that may represent a bulla or cavitary abnormality. Consider CT follow-up. Cervical Spine CT 11/16/20 01:32 IMPRESSION: No acute fracture or subluxation. Chest CT 11/16/20 01:32 IMPRESSION: Left lower rib fractures with small hydropneumothorax with a chest tube in place. Probable left basilar pulmonary contusion and pneumatocele. Head CT 11/16/20 01:32 IMPRESSION: No acute intracranial findings. Assessment & Plan - Diagnosis (1) Traumatic pneumothorax Qualifiers: Encounter type: initial encounter Qualified Code(s): S27.0XXA - Traumatic pneumothorax, initial encounter Is this a current diagnosis for this admission?: Yes Plan: Impression: Patient 13 hours status post left thoracostomy tube placement for la rge pneumothorax, concomitant hemothorax, minimal, secondary to rib fractures 7, 8, 9 posteriorly. Doing well, no evidence of air leak suction. Plan: 1. Pulmonary toilet, coughing and deep breathing 2. We will check portable upright chest x-ray in a.m.; if stable, anticipate placing chest tube to waterseal. Of note patient has bilateral emphysematous disease, and large pneumatocele. (2) Hypertension Is this a current diagnosis for this admission?: Yes (3) Multiple rib fractures Qualifiers: Encounter type: initial encounter Fracture type: closed Laterality: left Qualified Code(s): S22.42XA - Multiple fractures of ribs, left side, initial encounter for closed fracture Is this a current diagnosis for this admission?: Yes (4) Seizure Is this a current diagnosis for this admission?: Yes - Time Anticipated Discharge Disposition: Home, Self Care Anticipated Discharge Timeframe: within 48 hours
[2020-11-16] MEDS: DOCUSATE SODIUM 100 MG CAPSULE PO SCH (17:21)
[2020-11-16] MEDS: HYDRALAZINE HCL 25 MG TABLET PO SCH (17:21)
[2020-11-16] MEDS: LEVETIRACETAM ORAL SOLN 500 MG/5 ML UDCUP PO SCH (21:11)
[2020-11-16] MEDS: ATORVASTATIN CALCIUM 20 MG TABLET PO SCH (21:12)
[2020-11-16] MEDS ORDERED: LEVETIRACETAM 500 MG/NACL-ISO 500 MG/100 ML RTUPB IV SCH ×2 (22:00)
[2020-11-16] MEDS ORDERED: CEFTRIAXONE 1 GM/D5W RTU 1 GM/50 ML RTUPB IV SCH (22:00)
[2020-11-16] MEDS ORDERED: LEVETIRACETAM 500 MG TABLET PO SCH (22:00)
[2020-11-17] MEDS ORDERED: RINGERS SOLUTION,LACTATED 1,000 ML IV PRN (04:15)
[2020-11-17 06:38] LABS: HEMATOCRIT 29.4 % (37.9-51.0); HEMOGLOBIN 10.1 g/dL (13.5-17.0); MEAN CORPUSCULAR HEMOGLOBIN 28.1 pg (27.0-33.4); MEAN CORPUSCULAR HGB CONC 34.2 g/dL (32.0-36.0); MEAN CORPUSCULAR VOLUME 82 fl (80-97); PLATELET COUNT 167 10^3/uL (150-450); RED BLOOD COUNT 3.58 10^6/uL (4.35-5.55); RED CELL DISTRIBUTION WIDTH 16.3 % (11.5-14.0); WHITE BLOOD COUNT 9.4 10^3/uL (4.0-10.5)
--- NOTE | 2020-11-17 09:28 | RADIOLOGY REPORT (SQ) ---
EXAM DESCRIPTION: CHEST SINGLE VIEW IMAGES COMPLETED DATE/TIME: 11/17/2020 9:17 am REASON FOR STUDY: Interval change in left lung COMPARISON: 11/16/2020 NUMBER OF VIEWS: One view. TECHNIQUE: Single frontal radiographic image of the chest acquired. LIMITATIONS: None. FINDINGS: LUNGS AND PLEURA: Left-sided chest tube remains in place. No pneumothorax is appreciated. Minimal left basilar atelectasis which is unchanged. The right lung field remains clear. MEDIASTINUM AND HILAR STRUCTURES: Stable heart size and mediastinal structures. HEART AND VASCULAR STRUCTURES: Stable appearance. BONES: Left-sided rib fractures are again noted. HARDWARE: None in the chest. OTHER: No other significant finding. IMPRESSION: STABLE APPEARANCE OF THE CHEST. TECHNICAL DOCUMENTATION: JOB ID: [id number] 2010 [employer]- All Rights Reserved Reading location - IP/workstation name: [email or web address]
[2020-11-17] MEDS ORDERED: FLUOXETINE HCL 20 MG CAPSULE PO SCH (10:00)
[2020-11-17] MEDS: LEVETIRACETAM ORAL SOLN 500 MG/5 ML UDCUP PO SCH ×2 (10:27→21:11)
[2020-11-17] MEDS: ENOXAPARIN SODIUM INJ 40 MG/0.4 ML DISP.SYRIN SUBCUT SCH (10:28)
[2020-11-17] MEDS: CETIRIZINE 10 MG TABLET PO SCH (10:28)
[2020-11-17] MEDS: DOCUSATE SODIUM 100 MG CAPSULE PO SCH ×2 (10:28→17:56)
[2020-11-17] MEDS: FLUOXETINE HCL 20 MG/5 ML UDCUP PO SCH (10:28)
[2020-11-17] MEDS: HYDRALAZINE HCL 25 MG TABLET PO SCH ×2 (10:28→17:56)
[2020-11-17] MEDS: FAMOTIDINE 20 MG TABLET PO SCH ×2 (10:28→21:11)
[2020-11-17 10:36] LABS: ANION GAP 6 (5-19); BLOOD UREA NITROGEN 12 mg/dL (7-20); CALCIUM 8.5 mg/dL (8.4-10.2); CARBON DIOXIDE 22 mmol/L (22-30); CHLORIDE 108 mmol/L (98-107); GLUCOSE 147 mg/dL (75-110); POTASSIUM 4.9 mmol/L (3.6-5.0)
[2020-11-17] MEDS ORDERED: AMLODIPINE BESYLATE 10 MG TABLET PO SCH (15:15)
--- NOTE | 2020-11-17 15:54 | PDOC PROGRESS REPORT ---
Subjective Date:: 11/17/20 Subjective:: Patient feels well this morning. Denies shortness of breath. Having some pain at the site of the tube. Reason For Visit: PNEUMOTHORAX S/P CHEST TUBE INSERTION Physical Exam Vital Signs: Temp Pulse Resp BP Pulse Ox 99.0 F 79 16 189/64 H 99 11/17/20 10:00 11/17/20 14:00 11/17/20 07:48 11/17/20 07:48 11/17/20 07:48 Intake & Output 11/16/20 11/17/20 11/18/20 06:59 06:59 06:59 Intake Total 1150 2354 240 Output Total 1575 175 Balance 1150 779 65 Weight 47.8 kg 51.1 kg General appearance: PRESENT: no acute distress, cooperative Neck exam: ABSENT: JVD Respiratory exam: PRESENT: crackles - Mild in left lower lung field, symmetrical, unlabored. ABSENT: tachypnea, wheezes Cardiovascular exam: PRESENT: RRR, +S1, +S2. ABSENT: tachycardia GI/Abdominal exam: PRESENT: soft. ABSENT: rebound, rigid, tenderness Neurological exam: PRESENT: alert, awake, oriented to person, oriented to place, oriented to time, oriented to situation Psychiatric exam: ABSENT: agitated, anxious Results Laboratory Results: 11/17/20 05:12 11/17/20 10:04 11/17/20 11/17/20 11/17/20 05:12 05:12 07:22 WBC 9.4 RBC 3.58 L Hgb 10.1 L Hct 29.4 L MCV 82 MCH 28.1 MCHC 34.2 RDW 16.3 H Plt Count 167 Sodium Cancelled Cancelled Potassium Cancelled Cancelled Chloride Cancelled Cancelled Carbon Dioxide Cancelled Cancelled Anion Gap Cancelled Cancelled BUN Cancelled Cancelled Creatinine Cancelled Cancelled Est GFR ( Amer) Cancelled Cancelled Est GFR (Non-Af Amer) Cancelled Cancelled Glucose Cancelled Cancelled Calcium Cancelled Cancelled 11/17/20 10:04 WBC RBC Hgb Hct MCV MCH MCHC RDW Plt Count Sodium 136.3 L Potassium 4.9 Chloride 108 H Carbon Dioxide 22 Anion Gap 6 BUN 12 Creatinine 0.69 Est GFR ( Amer) > 60 Est GFR (Non-Af Amer) Glucose 147 H Calcium 8.5 11/16/20 11/16/20 00:29 08:50 Creatine Kinase 124 Troponin I 0.014 Impressions: Cervical Spine CT 11/16/20 01:32 IMPRESSION: No acute fracture or subluxation. Chest CT 11/16/20 01:32 IMPRESSION: Left lower rib fractures with small hydropneumothorax with a chest tube in place. Probable left basilar pulmonary contusion and pneumatocele. Head CT 11/16/20 01:32 IMPRESSION: No acute intracranial findings. Chest X-Ray 11/17/20 07:00 IMPRESSION: STABLE APPEARANCE OF THE CHEST. Assessment and Plan - Diagnosis (1) Traumatic pneumothorax Qualifiers: Encounter type: initial encounter Qualified Code(s): S27.0XXA - Traumatic pneumothorax, initial encounter Is this a current diagnosis for this admission?: Yes Plan: Secondary to rib fracture from fall from seizure. Chest tube still in place in the left lung. Chest x-ray this morning shows resolution of the pneumothorax. This morning, his chest tube is on waterseal and off suction. I did not notice any air leak. Surgery following to guide determination of chest tube removal. (2) Seizure Is this a current diagnosis for this admission?: Yes Plan: I have increased his Keppra dose from 500 mg to 750 mg twice daily. (3) Hypertension Is this a current diagnosis for this admission?: Yes Plan: Blood pressure is quite elevated today. Notably hypertensive urgency but asymp tomatic. Partly could be from pain at the chest tube site. He has medication for pain control. I noticed his amlodipine has not been restarted so I will restart this. Continue hydralazine. (4) Multiple rib fractures Qualifiers: Encounter type: initial encounter Fracture type: closed Laterality: left Qualified Code(s): S22.42XA - Multiple fractures of ribs, left side, initial encounter for closed fracture Is this a current diagnosis for this admission?: Yes Plan: Likely due to injury during seizure episode Symptomatic control (5) Urinary tract infection Qualifiers: Urinary tract infection type: site unspecified Hematuria presence: with hematuria Qualified Code(s): N39.0 - Urinary tract infection, site not sp ecified; R31.9 - Hematuria, unspecified Is this a current diagnosis for this admission?: Yes Plan: Urine culture growing gram-negative rods. Ceftriaxone day 2. (6) Pulmonary contusion Qualifiers: Encounter type: initial encounter Laterality: left Qualified Code(s): S27.321A - Contusion of lung, unilateral, initial encounter Is this a current diagnosis for this admission?: Yes Plan: Probable pulmonary contusion noted in the left basilar lung on the chest CT. Does not seem like there has been any progression on today's chest x-ray. H&H is stable. We can discontinue IV fluids today. Will monitor vital signs closely. - Time Time Spent with patient: 15-24 minutes Anticipated Discharge Disposition: Home, Self Care Anticipated Discharge Timeframe: within 48 hours
--- NOTE | 2020-11-17 16:50 | PDOC PROGRESS REPORT ---
Subjective Date:: 11/17/20 Subjective:: 75-year-old male with pneumothorax, possibly related to seizure activity. He re ports minimal chest discomfort this morning. He denies any shortness of breath. He denies fatigue, orthostasis, dizziness, headache, fevers, chills. Reason For Visit: PNEUMOTHORAX S/P CHEST TUBE INSERTION Physical Exam Vital Signs: Temp Pulse Resp BP Pulse Ox 99.0 F 79 16 189/64 H 99 11/17/20 10:00 11/17/20 14:00 11/17/20 07:48 11/17/20 07:48 11/17/20 07:48 Intake & Output 11/16/20 11/17/20 11/18/20 06:59 06:59 06:59 Intake Total 1150 2354 240 Output Total 1575 175 Balance 1150 779 65 Weight 47.8 kg 51.1 kg General appearance: PRESENT: no acute distress, cooperative, thin Head exam: PRESENT: atraumatic, normocephalic Eye exam: PRESENT: EOMI, PERRLA. ABSENT: scleral icterus Mouth exam: PRESENT: moist, neck supple Neck exam: ABSENT: meningismus, tenderness, thyromegaly Respiratory exam: PRESENT: other - Left-sided chest tube in place, to suction this morning. No appreciable air leak.. ABSENT: tachypnea Cardiovascular exam: ABSENT: tachycardia GI/Abdominal exam: PRESENT: soft. ABSENT: distended, firm, rebound, tenderness Rectal exam: PRESENT: deferred Musculoskeletal exam: ABSENT: deformity Neurological exam: PRESENT: alert, awake, oriented to person, oriented to place, oriented to time, oriented to situation Psychiatric exam: ABSENT: agitated, anxious, depressed Focused psych exam: ABSENT: delusional Skin exam: ABSENT: cyanosis, erythema, jaundice Results Laboratory Results: 11/17/20 05:12 11/17/20 10:04 11/17/20 11/17/20 11/17/20 05:12 05:12 07:22 WBC 9.4 RBC 3.58 L Hgb 10.1 L Hct 29.4 L MCV 82 MCH 28.1 MCHC 34.2 RDW 16.3 H Plt Count 167 Sodium Cancelled Cancelled Potassium Cancelled Cancelled Chloride Cancelled Cancelled Carbon Dioxide Cancelled Cancelled Anion Gap Cancelled Cancelled BUN Cancelled Cancelled Creatinine Cancelled Cancelled Est GFR ( Amer) Cancelled Cancelled Est GFR (Non-Af Amer) Cancelled Cancelled Glucose Cancelled Cancelled Calcium Cancelled Cancelled 11/17/20 10:04 WBC RBC Hgb Hct MCV MCH MCHC RDW Plt Count Sodium 136.3 L Potassium 4.9 Chloride 108 H Carbon Dioxide 22 Anion Gap 6 BUN 12 Creatinine 0.69 Est GFR ( Amer) > 60 Est GFR (Non-Af Amer) Glucose 147 H Calcium 8.5 11/16/20 11/16/20 00:29 08:50 Creatine Kinase 124 Troponin I 0.014 Impressions: Cervical Spine CT 11/16/20 01:32 IMPRESSION: No acute fracture or subluxation. Chest CT 11/16/20 01:32 IMPRESSION: Left lower rib fractures with small hydropneumothorax with a chest tube in place. Probable left basilar pulmonary contusion and pneumatocele. Head CT 11/16/20 01:32 IMPRESSION: No acute intracranial findings. Chest X-Ray 11/17/20 07:00 IMPRESSION: STABLE APPEARANCE OF THE CHEST. Assessment & Plan - Diagnosis (1) Traumatic pneumothorax Qualifiers: Encounter type: subsequent encounter Qualified Code(s): S27.0XXD - Traumatic pneumothorax, subsequent encounter Is this a current diagnosis for this admission?: Yes - Time Anticipated Discharge Disposition: unknown Anticipated Discharge Timeframe: unknown - Plan Summary Plan Summary: 75-year-old male with a pneumothorax. I have reviewed his chest x-ray today. There is no obvious persistence or recurrence of his pneumothorax. He has no appreciable air leak at this time. I will place his chest tube to waterseal, and repeat his chest x-ray in several hours. If the lung remains inflated, will maintain chest tube to waterseal for now. Continue with current pain medication regimen. Continue close monitoring for respiratory distress. Continue with pulmonary toilet. Surgery will follow.
--- NOTE | 2020-11-17 18:59 | RADIOLOGY REPORT (SQ) ---
EXAM DESCRIPTION: CHEST SINGLE VIEW IMAGES COMPLETED DATE/TIME: 11/17/2020 5:45 pm REASON FOR STUDY: ptx COMPARISON: 11/17/2020 EXAM PARAMETERS: NUMBER OF VIEWS: One view. TECHNIQUE: Single frontal radiographic view of the chest acquired. RADIATION DOSE: NA LIMITATIONS: None. FINDINGS: LUNGS AND PLEURA: There is no change in the appearance of the lungs. No residual pneumoth orax is appreciated. MEDIASTINUM AND HILAR STRUCTURES: No masses. Contour normal. HEART AND VASCULAR STRUCTURES: Heart normal in size. Normal vasculature. BONES: No acute findings. HARDWARE: Thoracotomy tube remains in place on the left. OTHER: No other significant finding. IMPRESSION: There is no change in the appearance of the chest. TECHNICAL DOCUMENTATION: JOB ID: [id number] 2010 [employer]- All Rights Reserved Reading location - IP/workstation name: [email or web address]
[2020-11-17] MEDS: ATORVASTATIN CALCIUM 20 MG TABLET PO SCH (21:10)
--- NOTE | 2020-11-17 21:27 | RADIOLOGY REPORT (SQ) ---
EXAM DESCRIPTION: XR CHEST 1 VIEW. A 30 p.m. COMPLETED DATE/TME: 11/17/2020 20:46 CLINICAL HISTORY: 75 years, Male, placement check COMPARISON: Chest x-ray today at 5:[address] chest from yesterday. TECHNIQUE: Upright portable chest x-ray FINDINGS: Acag-qy-dwmsvlla cardiomegaly. Shift of the heart to the left. No suspicious mediastinal widening. Hyperinflated right lung. Left posterior rib fractures. Unchanged mild left pleural-parenchymal abnormality. Left chest tube is present with the tip in the left upper pleural space. No definite left pneumothorax. No change since earlier film today.
[2020-11-17] MEDS: CEFTRIAXONE SODIUM 1,000 MG in DEXTROSE 5%-WATER 50 ML IV SCH (21:55)
[2020-11-18] MEDS: AMLODIPINE BESYLATE 10 MG TABLET PO SCH (04:31)
--- NOTE | 2020-11-18 08:26 | RADIOLOGY REPORT (SQ) ---
EXAM DESCRIPTION: CHEST SINGLE VIEW IMAGES COMPLETED DATE/TIME: 11/18/2020 6:18 am REASON FOR STUDY: ptx COMPARISON: 11/17/2020. CT chest 11/16/2020 EXAM PARAMETERS: NUMBER OF VIEWS: One view. TECHNIQUE: Single frontal radiographic view of the chest acquired. RADIATION DOSE: NA LIMITATIONS: None. FINDINGS: LUNGS AND PLEURA: Lungs are hyperinflated. Biapical pleural and parenchymal scarring is s table. No pneumothorax. New metaphyseal in the left lung base. No focal consolidation or pleural e ffusion. MEDIASTINUM AND HILAR STRUCTURES: No masses. Contour normal. HEART AND VASCULAR STRUCTURES: Heart normal in size. Normal vasculature. BONES: No acute findings. HARDWARE: Left apical chest tube remains in place. OTHER: No other significant finding. IMPRESSION: No significant interval change. TECHNICAL DOCUMENTATION: JOB ID: [id number] 2010 [employer]- All Rights Reserved Reading location - IP/workstation name: [email or web address]
--- NOTE | 2020-11-18 08:51 | PDOC PROGRESS REPORT ---
Subjective Date:: 11/18/20 Subjective:: feels ok Reason For Visit: PNEUMOTHORAX S/P CHEST TUBE INSERTION Physical Exam Vital Signs: Temp Pulse Resp BP Pulse Ox 97.6 F 74 16 124/93 H 98 11/18/20 03:44 11/18/20 07:00 11/18/20 03:44 11/18/20 03:44 11/18/20 03:44 Intake & Output 11/17/20 11/18/20 11/19/20 06:59 06:59 06:59 Intake Total 2354 1250 Output Total 1575 315 110 Balance 779 935 -110 Weight 51.1 kg 49.3 kg General appearance: PRESENT: no acute distress, thin Head exam: PRESENT: normocephalic Eye exam: PRESENT: EOMI Ear exam: PRESENT: normal external ear exam Mouth exam: PRESENT: dry mucosa Teeth exam: PRESENT: poor dentation Neck exam: PRESENT: full ROM Respiratory exam: PRESENT: clear to auscultation kevyn Cardiovascular exam: PRESENT: RRR Pulses: PRESENT: normal femoral pulses, normal dorsalis pedis pul Vascular exam: PRESENT: normal capillary refill GI/Abdominal exam: PRESENT: soft Rectal exam: PRESENT: deferred Extremities exam: PRESENT: full ROM Neurological exam: PRESENT: alert, awake Psychiatric exam: PRESENT: appropriate affect Skin exam: PRESENT: dry Results Laboratory Results: 11/17/20 05:12 11/17/20 10:04 11/17/20 10:04 Sodium 136.3 L Potassium 4.9 Chloride 108 H Carbon Dioxide 22 Anion Gap 6 BUN 12 Creatinine 0.69 Est GFR ( Amer) > 60 Glucose 147 H Calcium 8.5 11/16/20 11/16/20 00:29 08:50 Creatine Kinase 124 Troponin I 0.014 Impressions: Cervical Spine CT 11/16/20 01:32 IMPRESSION: No acute fracture or subluxation. Chest CT 11/16/20 01:32 IMPRESSION: Left lower rib fractures with small hydropneumothorax with a chest tube in place. Probable left basilar pulmonary contusion and pneumatocele. Head CT 11/16/20 01:32 IMPRESSION: No acute intracranial findings. Chest X-Ray 11/18/20 07:00 IMPRESSION: No significant interval change. Assessment & Plan - Time Anticipated Discharge Disposition: unk Anticipated Discharge Timeframe: within 24 hours - Plan Summary Plan Summary: s/p left chst tube for fall and rib fx with pneumo ct on water seal for 24 hrs. repeat cxr this am, no ptx will dc chest tube recheck cxr in 4 hrs.
[2020-11-18] MEDS: DOCUSATE SODIUM 100 MG CAPSULE PO SCH ×2 (09:57→17:41)
[2020-11-18] MEDS: LEVETIRACETAM ORAL SOLN 500 MG/5 ML UDCUP PO SCH ×2 (09:57→22:16)
[2020-11-18] MEDS: FAMOTIDINE 20 MG TABLET PO SCH ×2 (09:58→22:14)
[2020-11-18] MEDS: FLUOXETINE HCL 20 MG/5 ML UDCUP PO SCH (09:58)
[2020-11-18] MEDS: CETIRIZINE 10 MG TABLET PO SCH (09:58)
[2020-11-18] MEDS: HYDRALAZINE HCL 25 MG TABLET PO SCH ×2 (09:58→17:41)
[2020-11-18] MEDS: ENOXAPARIN SODIUM INJ 40 MG/0.4 ML DISP.SYRIN SUBCUT SCH (09:58)
--- NOTE | 2020-11-18 11:25 | PDOC PROGRESS REPORT ---
Subjective Date:: 11/18/20 Subjective:: The patient is resting comfortably in bed. He was agitated last night and was placed in restraints. This morning he is not in restraints. He is quite calm. He interacts verbally. His chest tube in fact has been removed. This certainly may be helping. Reason For Visit: PNEUMOTHORAX S/P CHEST TUBE INSERTION Physical Exam Vital Signs: Temp Pulse Resp BP Pulse Ox 97.6 F 74 16 124/93 H 98 11/18/20 10:00 11/18/20 07:00 11/18/20 03:44 11/18/20 03:44 11/18/20 03:44 Intake & Output 11/17/20 11/18/20 11/19/20 06:59 06:59 06:59 Intake Total 2354 1250 Output Total 1575 315 110 Balance 779 935 -110 Weight 51.1 kg 49.3 kg General appearance: PRESENT: no acute distress, cooperative, thin, well- developed Head exam: PRESENT: atraumatic, normocephalic Respiratory exam: PRESENT: clear to auscultation kevyn, symmetrical, unlabored. ABSENT: rales, rhonchi, tachypnea, wheezes Cardiovascular exam: PRESENT: RRR, +S1, +S2 GI/Abdominal exam: PRESENT: normal bowel sounds, soft. ABSENT: tenderness Results Laboratory Results: 11/17/20 05:12 11/17/20 10:04 11/16/20 11/16/20 00:29 08:50 Creatine Kinase 124 Troponin I 0.014 Impressions: Cervical Spine CT 11/16/20 01:32 IMPRESSION: No acute fracture or subluxation. Chest CT 11/16/20 01:32 IMPRESSION: Left lower rib fractures with small hydropneumothorax with a chest tube in place. Probable left basilar pulmonary contusion and pneumatocele. Head CT 11/16/20 01:32 IMPRESSION: No acute intracranial findings. Chest X-Ray 11/18/20 07:00 IMPRESSION: No significant interval change. Assessment and Plan - Diagnosis (1) Traumatic pneumothorax Qualifiers: Encounter type: subsequent encounter Qualified Code(s): S27.0XXD - Traumatic pneumothorax, subsequent encounter Is this a current diagnosis for this admission?: Yes (2) Seizure Is this a current diagnosis for this admission?: Yes (3) Hypertension Is this a current diagnosis for this admission?: Yes (4) Multiple rib fractures Qualifiers: Encounter type: initial encounter Fracture type: closed Laterality: left Qualified Code(s): S22.42XA - Multiple fractures of ribs, left side, initial encounter for closed fracture Is this a current diagnosis for this admission?: Yes (5) Urinary tract infection Qualifiers: Urinary tract infection type: site unspecified Hematuria presence: with he maturia Qualified Code(s): N39.0 - Urinary tract infection, site not spec ified; R31.9 - Hematuria, unspecified Is this a current diagnosis for this admission?: Yes (6) Pulmonary contusion Qualifiers: Encounter type: initial encounter Laterality: left Qualified Code(s): S27.321A - Contusion of lung, unilateral, initial encounter Is this a current diagnosis for this admission?: Yes (7) Anemia, chronic disease Is this a current diagnosis for this admission?: Yes (8) Hyponatremia Is this a current diagnosis for this admission?: Yes - Plan Summary Summary: (1) Traumatic pneumothorax Qualifiers: Encounter type: initial encounter Qualified Code(s): S27.0XXA - Traumatic pneumothorax, initial encounter Is this a current diagnosis for this admission?: Yes Plan: Secondary to rib fracture from fall from seizure. Chest tube still in place in the left lung. Chest x-ray this morning shows resolution of the pneumothorax. This morning, his chest tube is on waterseal and off suction. I did not notice any air leak. Surgery following to guide determination of chest tube removal. (2) Seizure Is this a current diagnosis for this admission?: Yes Plan: I have increased his Keppra dose from 500 mg to 750 mg twice daily. (3) Hypertension Is this a current diagnosis for this admission?: Yes Plan: Blood pressure is quite elevated today. Notably hypertensive urgency but asymptomatic. Partly could be from pain at the chest tube site. He has medication for pain control. I noticed his amlodipine has not been restarted so I will restart this. Continue hydralazine. (4) Multiple rib fractures Qualifiers: Encounter type: initial encounter Fracture type: closed Laterality: left Qualified Code(s): S22.42XA - Multiple fractures of ribs, left side, initial encounter for closed fracture Is this a current diagnosis for this admission?: Yes Plan: Likely due to injury during seizure episode Symptomatic control (5) Urinary tract infection Qualifiers: Urinary tract infection type: site unspecified Hematuria presence: with hematuria Qualified Code(s): N39.0 - Urinary tract infection, site not specified; R31.9 - Hematuria, unspecified Is this a current diagnosis for this admission?: Yes Plan: Urine culture growing gram-negative rods. Ceftriaxone day 2. (6) Pulmonary contusion Qualifiers: Encounter type: initial encounter Laterality: left Qualified Code(s): S27.321A - Contusion of lung, unilateral, initial encounter Is this a current diagnosis for this admission?: Yes Plan: Probable pulmonary contusion noted in the left basilar lung on the chest CT. Does not seem like there has been any progression on today's chest x-ray. H&H is stable. We can discontinue IV fluids today. Will monitor vital signs closely. (7) Anemia, chronic disease Is this a current diagnosis for this admission?: Yes (8) Hyponatremia Is this a current diagnosis for this admission?: Yes 11/18/2020 Pneumothorax for multiple rib fractures-chest tube has been removed. Follow-up x-ray in several hours. Seizure disorder-on increased dose of Keppra. Continue to monitor. Pulmonary contusion-result of the same fall causing rib fractures. Continue to monitor. Continue to monitor vital signs. Oxygenating very well on room air. Urinary tract infection-sensitive E. coli. Continue Rocephin. Hypertension-continue to monitor blood pressures. Continue amlodipine and hydralazine Anemia-likely anemia of chronic disease. I reviewed previous laboratory studies and the patient appears to be at his baseline. Hyponatremia-very mild. Likely from the acute illness. No acute intervention. Will monitor. - Time Time Spent with patient: 15-24 minutes Medications reviewed and adjusted accordingly: Yes Anticipated Discharge Disposition: Home with Home Health Anticipated Discharge Timeframe: Unknown
--- NOTE | 2020-11-18 13:13 | RADIOLOGY REPORT (SQ) ---
EXAM DESCRIPTION: CHEST SINGLE VIEW IMAGES COMPLETED DATE/TIME: 11/18/2020 12:44 pm REASON FOR STUDY: f/u ptx COMPARISON: 11/18/2020 EXAM PARAMETERS: NUMBER OF VIEWS: One view. TECHNIQUE: Single frontal radiographic view of the chest acquired. RADIATION DOSE: NA LIMITATIONS: None. FINDINGS: LUNGS AND PLEURA: There appears to be a minimal left apical pneumothorax status post chest tube removal. MEDIASTINUM AND HILAR STRUCTURES: No masses. Contour normal. HEART AND VASCULAR STRUCTURES: Heart normal in size. Normal vasculature. BONES: No acute findings. HARDWARE: None in the chest. OTHER: No other significant finding. IMPRESSION: Minimal left apical pneumothorax status post chest tube removal. TECHNICAL DOCUMENTATION: JOB ID: [id number] 2010 [employer]- All Rights Reserved Reading location - IP/workstation name: [email or web address]
[2020-11-18] MEDS: ATORVASTATIN CALCIUM 20 MG TABLET PO SCH (22:14)
[2020-11-18] MEDS: CEFTRIAXONE SODIUM 1,000 MG in DEXTROSE 5%-WATER 50 ML IV SCH (22:15)
[2020-11-19 06:35] LABS: ABSOLUTE BASOPHILS # (AUTO) 0.1 10^3/uL (0.0-0.2); ABSOLUTE EOSINOPHILS # (AUTO) 0.4 10^3/uL (0.0-0.6); ABSOLUTE LYMPHOCYTES (AUTO) 2.1 10^3/uL (0.5-4.7); ABSOLUTE MONOCYTES (AUTO) 0.7 10^3/uL (0.1-1.4); ABSOLUTE NEUT (AUTO) 2.8 10^3/uL (1.7-8.2); EOSINOPHILS % (AUTO) 6.5 % (0-6); HEMATOCRIT 35.3 % (37.9-51.0); HEMOGLOBIN 11.6 g/dL (13.5-17.0); LYMPHOCYTES % (AUTO) 34.4 % (13-45); MEAN CORPUSCULAR HEMOGLOBIN 26.8 pg (27.0-33.4); MEAN CORPUSCULAR HGB CONC 32.8 g/dL (32.0-36.0); MEAN CORPUSCULAR VOLUME 82 fl (80-97); MONOCYTES % (AUTO) 11.5 % (3-13); PLATELET COUNT 205 10^3/uL (150-450); RED BLOOD COUNT 4.32 10^6/uL (4.35-5.55); RED CELL DISTRIBUTION WIDTH 15.8 % (11.5-14.0); SEGMENTED NEUTROPHILS % (AUTO) 45.6 % (42-78); TOTAL CELLS COUNTED % (AUTO) 100 %; WHITE BLOOD COUNT 6.1 10^3/uL (4.0-10.5)
[2020-11-19 06:49] LABS: BLOOD UREA NITROGEN 12 mg/dL (7-20); CALCIUM 8.5 mg/dL (8.4-10.2); CHLORIDE 100 mmol/L (98-107); GLUCOSE 84 mg/dL (75-110); POTASSIUM 3.7 mmol/L (3.6-5.0)
[2020-11-19 06:55] LABS: ANION GAP 5 (5-19); CARBON DIOXIDE 33 mmol/L (22-30)
--- NOTE | 2020-11-19 09:12 | PDOC PROGRESS REPORT ---
Subjective Date:: 11/19/20 Subjective:: 75-year-old male with pneumothorax, possibly related to seizure activity and a f all. He denies chest discomfort this morning. He denies any shortness of breath. He denies fatigue, orthostasis, dizziness, headache, fevers, chills. Reason For Visit: PNEUMOTHORAX S/P CHEST TUBE INSERTION Physical Exam Vital Signs: Temp Pulse Resp BP Pulse Ox 97.5 F 70 14 122/76 97 11/19/20 08:12 11/19/20 06:50 11/19/20 01:28 11/19/20 01:28 11/19/20 01:28 Intake & Output 11/18/20 11/19/20 11/20/20 06:59 06:59 06:59 Intake Total 1250 490 Output Total 315 110 Balance 935 380 Weight 49.3 kg 48.5 kg Exam: General appearance: PRESENT: no acute distress, cooperative, thin Head exam: PRESENT: atraumatic, normocephalic Eye exam: PRESENT: EOMI, PERRLA. ABSENT: scleral icterus Mouth exam: PRESENT: moist, neck supple Neck exam: ABSENT: meningismus, tenderness, thyromegaly Respiratory exam: PRESENT: tenderness - minimal lateral chest wall. ABSENT: tachypnea Cardiovascular exam: ABSENT: tachycardia GI/Abdominal exam: PRESENT: soft. ABSENT: distended, firm, rebound, tenderness Rectal exam: PRESENT: deferred Musculoskeletal exam: ABSENT: deformity Neurological exam: PRESENT: alert, awake, oriented to person, oriented to place, oriented to time, oriented to situation Psychiatric exam: ABSENT: agitated, anxious, depressed Focused psych exam: ABSENT: delusional Skin exam: ABSENT: cyanosis, erythema, jaundice Results Laboratory Results: 11/19/20 06:01 11/19/20 06:01 11/19/20 11/19/20 06:01 06:01 WBC 6.1 RBC 4.32 L Hgb 11.6 L Hct 35.3 L MCV 82 MCH 26.8 L MCHC 32.8 RDW 15.8 H Plt Count 205 Seg Neutrophils % 45.6 Sodium 138.2 Potassium 3.7 Chloride 100 Carbon Dioxide 33 H Anion Gap 5 BUN 12 Creatinine 0.81 Est GFR ( Amer) > 60 Glucose 84 Calcium 8.5 Magnesium 2.2 11/16/20 03:54 Catheterized Urine Urine Culture - Final Escherichia Coli Aerococcus Urinae 11/16/20 11/16/20 00:29 08:50 Creatine Kinase 124 Troponin I 0.014 Impressions: Cervical Spine CT 11/16/20 01:32 IMPRESSION: No acute fracture or subluxation. Chest CT 11/16/20 01:32 IMPRESSION: Left lower rib fractures with small hydropneumothorax with a chest tube in place. Probable left basilar pulmonary contusion and pneumatocele. Head CT 11/16/20 01:32 IMPRESSION: No acute intracranial findings. Assessment & Plan - Diagnosis (1) Traumatic pneumothorax Qualifiers: Encounter type: subsequent encounter Qualified Code(s): S27.0XXD - Traumatic pneumothorax, subsequent encounter Is this a current diagnosis for this admission?: Yes - Time Anticipated Discharge Disposition: unknown Anticipated Discharge Timeframe: unknown - Plan Summary Plan Summary: 75-year-old male with a pneumothorax. I have reviewed his chest x-ray today. His chest tube has been removed. There is no obvious recurrence of his pneumothorax. Continue with pulmonary toilet. Surgery will sign off at this time. Please renotify with any questions or concerns. Followup with [facility] on an as-needed basis.
[2020-11-19] MEDS: CETIRIZINE 10 MG TABLET PO SCH (09:41)
[2020-11-19] MEDS: HYDRALAZINE HCL 25 MG TABLET PO SCH ×2 (09:41→17:08)
[2020-11-19] MEDS: AMLODIPINE BESYLATE 10 MG TABLET PO SCH (09:41)
[2020-11-19] MEDS: FLUOXETINE HCL 20 MG/5 ML UDCUP PO SCH (09:41)
[2020-11-19] MEDS: DOCUSATE SODIUM 100 MG CAPSULE PO SCH ×2 (09:41→17:08)
[2020-11-19] MEDS: ENOXAPARIN SODIUM INJ 40 MG/0.4 ML DISP.SYRIN SUBCUT SCH (09:41)
[2020-11-19] MEDS: LEVETIRACETAM ORAL SOLN 500 MG/5 ML UDCUP PO SCH ×2 (09:41→21:10)
[2020-11-19] MEDS: FAMOTIDINE 20 MG TABLET PO SCH ×2 (09:41→21:10)
--- NOTE | 2020-11-19 10:08 | RADIOLOGY REPORT (SQ) ---
EXAM DESCRIPTION: CHEST SINGLE VIEW IMAGES COMPLETED DATE/TIME: 11/19/2020 8:03 am REASON FOR STUDY: r/o pneumo COMPARISON: 11/18/2020 EXAM PARAMETERS: NUMBER OF VIEWS: One view. TECHNIQUE: Single frontal radiographic view of the chest acquired. RADIATION DOSE: NA LIMITATIONS: None. FINDINGS: LUNGS AND PLEURA: Hyper aeration with flattening of the hemidiaphragms ; left lower lobe p neumatocele. No significant residual pneumothorax. No focal consolidation. No pleural effusion. MEDIASTINUM AND HILAR STRUCTURES: No masses. Contour normal. HEART AND VASCULAR STRUCTURES: Heart normal in size. Normal vasculature. BONES: No acute findings. HARDWARE: None in the chest. OTHER: No other significant finding. IMPRESSION: No significant residual pneumothorax. No evidence of acute cardiopulmonary abnormality. TECHNICAL DOCUMENTATION: JOB ID: [id number] 2010 [employer]- All Rights Reserved Reading location - IP/workstation name: [email or web address]
--- NOTE | 2020-11-19 15:01 | PDOC PROGRESS REPORT ---
Subjective Date:: 11/19/20 Subjective:: The patient is doing very well. The chest tube was taken out yesterday. There is no recurrent pneumothorax. The patient has not been out of bed yet however the nurse will ambulate patient and have him out of bed for meals and if he is stable then likely to discharge tomorrow Reason For Visit: PNEUMOTHORAX S/P CHEST TUBE INSERTION Physical Exam Vital Signs: Temp Pulse Resp BP Pulse Ox 98.0 F 75 16 128/65 H 100 11/19/20 11:50 11/19/20 14:00 11/19/20 11:50 11/19/20 11:50 11/19/20 11:50 Intake & Output 11/18/20 11/19/20 11/20/20 06:59 06:59 06:59 Intake Total 1250 490 Output Total 315 110 Balance 935 380 Weight 49.3 kg 48.5 kg General appearance: PRESENT: no acute distress, cooperative, thin, well-developed Head exam: PRESENT: atraumatic, normocephalic Ear exam: PRESENT: normal external ear exam. ABSENT: bleeding, drainage Mouth exam: PRESENT: moist, tongue midline Respiratory exam: PRESENT: clear to auscultation kevyn, symmetrical, unlabored. ABSENT: accessory muscle use, rales, rhonchi, tachypnea, wheezes Cardiovascular exam: PRESENT: RRR, +S1, +S2. ABSENT: bradycardia, diastolic murmur, irregular rhythm, systolic murmur, tachycardia GI/Abdominal exam: PRESENT: normal bowel sounds, soft. ABSENT: distended, tenderness Rectal exam: PRESENT: deferred Extremities exam: ABSENT: pedal edema Musculoskeletal exam: PRESENT: other - Decreased muscle mass in general. ABSENT: deformity, dislocation Neurological exam: PRESENT: alert, awake, oriented to person, oriented to place, oriented to time, oriented to situation, CN II-XII grossly intact. ABSENT: altered Psychiatric exam: PRESENT: appropriate affect, normal mood. ABSENT: agitated, anxious Focused psych exam: ABSENT: delusional, paranoid, restlessness Skin exam: PRESENT: dry, normal color, warm. ABSENT: rash Results Laboratory Results: 11/19/20 06:01 11/19/20 06:01 11/19/20 11/19/20 06:01 06:01 WBC 6.1 RBC 4.32 L Hgb 11.6 L Hct 35.3 L MCV 82 MCH 26.8 L MCHC 32.8 RDW 15.8 H Plt Count 205 Seg Neutrophils % 45.6 Sodium 138.2 Potassium 3.7 Chloride 100 Carbon Dioxide 33 H Anion Gap 5 BUN 12 Creatinine 0.81 Est GFR ( Amer) > 60 Glucose 84 Calcium 8.5 Magnesium 2.2 11/16/20 03:54 Catheterized Urine Urine Culture - Final Escherichia Coli Aerococcus Urinae 11/16/20 11/16/20 00:29 08:50 Creatine Kinase 124 Troponin I 0.014 Impressions: Cervical Spine CT 11/16/20 01:32 IMPRESSION: No acute fracture or subluxation. Chest CT 11/16/20 01:32 IMPRESSION: Left lower rib fractures with small hydropneumothorax with a chest tube in place. Probable left basilar pulmonary contusion and pneumatocele. Head CT 11/16/20 01:32 IMPRESSION: No acute intracranial findings. Chest X-Ray 11/19/20 06:00 IMPRESSION: No significant residual pneumothorax. No evidence of acute cardiopulmonary abnormality. Assessment and Plan - Diagnosis (1) Traumatic pneumothorax Qualifiers: Encounter type: subsequent encounter Qualified Code(s): S27.0XXD - Traumatic pneumothorax, subsequent encounter Is this a current diagnosis for this admission?: Yes (2) Seizure Is this a current diagnosis for this admission?: Yes (3) Hypertension Is this a current diagnosis for this admission?: Yes (4) Multiple rib fractures Qualifiers: Encounter type: initial encounter Fracture type: closed Laterality: left Qualified Code(s): S22.42XA - Multiple fractures of ribs, left side, initial encounter for closed fracture Is this a current diagnosis for this admission?: Yes (5) Urinary tract infection Qualifiers: Urinary tract infection type: site unspecified Hematuria presence: with hematuria Qualified Code(s): N39.0 - Urinary tract infection, site not specified; R31.9 - Hematuria, unspecified Is this a current diagnosis for this admission?: Yes (6) Pulmonary contusion Qualifiers: Encounter type: initial encounter Laterality: left Qualified Code(s): S27.321A - Contusion of lung, unilateral, initial encounter Is this a current diagnosis for this admission?: Yes (7) Anemia, chronic disease Is this a current diagnosis for this admission?: Yes (8) Hyponatremia Is this a current diagnosis for this admission?: Yes - Plan Summary Summary: (1) Traumatic pneumothorax Qualifiers: Encounter type: initial encounter Qualified Code(s): S27.0XXA - Traumatic pneumothorax, initial encounter Is this a current diagnosis for this admission?: Yes Plan: Secondary to rib fracture from fall from seizure. Chest tube still in place in the left lung. Chest x-ray this morning shows resolution of the pneumothorax. This morning, his chest tube is on waterseal and off suction. I did not notice any air leak. Surgery following to guide determination of chest tube removal. (2) Seizure Is this a current diagnosis for this admission?: Yes Plan: I have increased his Keppra dose from 500 mg to 750 mg twice daily. (3) Hypertension Is this a current diagnosis for this admission?: Yes Plan: Blood pressure is quite elevated today. Notably hypertensive urgency but asymp tomatic. Partly could be from pain at the chest tube site. He has medication for pain control. I noticed his amlodipine has not been restarted so I will restart this. Continue hydralazine. (4) Multiple rib fractures Qualifiers: Encounter type: initial encounter Fracture type: closed Laterality: left Qualified Code(s): S22.42XA - Multiple fractures of ribs, left side, initial encounter for closed fracture Is this a current diagnosis for this admission?: Yes Plan: Likely due to injury during seizure episode Symptomatic control (5) Urinary tract infection Qualifiers: Urinary tract infection type: site unspecified Hematuria presence: with hematuria Qualified Code(s): N39.0 - Urinary tract infection, site not sp ecified; R31.9 - Hematuria, unspecified Is this a current diagnosis for this admission?: Yes Plan: Urine culture growing gram-negative rods. Ceftriaxone day 2. (6) Pulmonary contusion Qualifiers: Encounter type: initial encounter Laterality: left Qualified Code(s): S27.321A - Contusion of lung, unilateral, initial encounter Is this a current diagnosis for this admission?: Yes Plan: Probable pulmonary contusion noted in the left basilar lung on the chest CT. Does not seem like there has been any progression on today's chest x-ray. H&H is stable. We can discontinue IV fluids today. Will monitor vital signs closely. (7) Anemia, chronic disease Is this a current diagnosis for this admission?: Yes (8) Hyponatremia Is this a current diagnosis for this admission?: Yes 11/18/2020 Pneumothorax for multiple rib fractures-chest tube has been removed. Follow-up x-ray in several hours. Seizure disorder-on increased dose of Keppra. Continue to monitor. Pulmonary contusion-result of the same fall causing rib fractures. Continue to monitor. Continue to monitor vital signs. Oxygenating very well on room air. Urinary tract infection-sensitive E. coli. Continue Rocephin. Hypertension-continue to monitor blood pressures. Continue amlodipine and hydralazine Anemia-likely anemia of chronic disease. I reviewed previous laboratory studies and the patient appears to be at his baseline. Hyponatremia-very mild. Likely from the acute illness. No acute intervention. Will monitor. 11/19/2020 Pneumothorax-chest tube was removed yesterday. No evidence of pneumothorax. Surgery is signed off. Seizure disorder-currently seizure-free on current dose of Keppra. Pulmonary contusion-no acute intervention at this time. We will continue to monitor. Patient remains on room air. E. coli urinary tract infection-complete antibiotic therapy. Will likely need to complete with oral antibiotics as an outpatient. Hypertension-stable on current medications Hyponatremia-serum sodium is normal today. Continue to monitor. Overall the patient is doing well. I told him that if he is able to walk around, sit up in the chair and function normally he will be able to go home tomorrow. - Time Time Spent with patient: 15-24 minutes Medications reviewed and adjusted accordingly: Yes Anticipated Discharge Disposition: Home, Self Care Anticipated Discharge Timeframe: within 48 hours
[2020-11-19] MEDS: ATORVASTATIN CALCIUM 20 MG TABLET PO SCH (21:10)
[2020-11-19] MEDS: CEFTRIAXONE SODIUM 1,000 MG in DEXTROSE 5%-WATER 50 ML IV SCH (21:11)
--- NOTE | 2020-11-20 08:34 | RADIOLOGY REPORT (SQ) ---
EXAM DESCRIPTION: CHEST SINGLE VIEW IMAGES COMPLETED DATE/TIME: 11/20/2020 8:15 am REASON FOR STUDY: r/o pneumo COMPARISON: 11/27/2020 EXAM PARAMETERS: NUMBER OF VIEWS: One view. TECHNIQUE: Single frontal radiographic view of the chest acquired. RADIATION DOSE: NA LIMITATIONS: None. FINDINGS: LUNGS AND PLEURA: Hyper aeration with flattening of the hemidiaphragms and left lower lobe pneumatoceles, stable. Small left-sided pleural effusion on today's examination. No pneumothorax. MEDIASTINUM AND HILAR STRUCTURES: No masses. Contour normal. HEART AND VASCULAR STRUCTURES: Heart normal in size. Normal vasculature. BONES: No acute findings. HARDWARE: None in the chest. OTHER: No other significant finding. IMPRESSION: Interval development of a small left-sided pleural effusion. Otherwise stable radiograp hic appearance of the chest. No evidence of recurrent pneumothorax. TECHNICAL DOCUMENTATION: JOB ID: [id number] 2010 [employer]- All Rights Reserved Reading location - IP/workstation name: [email or web address]
[2020-11-20] MEDS: AMLODIPINE BESYLATE 10 MG TABLET PO SCH (09:14)
[2020-11-20] MEDS: FAMOTIDINE 20 MG TABLET PO SCH (09:14)
[2020-11-20] MEDS: DOCUSATE SODIUM 100 MG CAPSULE PO SCH (09:14)
[2020-11-20] MEDS: CETIRIZINE 10 MG TABLET PO SCH (09:14)
[2020-11-20] MEDS: LEVETIRACETAM ORAL SOLN 500 MG/5 ML UDCUP PO SCH (09:14)
[2020-11-20] MEDS: FLUOXETINE HCL 20 MG/5 ML UDCUP PO SCH (09:14)
[2020-11-20] MEDS: ENOXAPARIN SODIUM INJ 40 MG/0.4 ML DISP.SYRIN SUBCUT SCH (09:14)
[2020-11-20] MEDS: HYDRALAZINE HCL 25 MG TABLET PO SCH (09:14)
--- NOTE | 2020-11-20 12:38 | PDOC PROGRESS REPORT ---
Subjective Date:: 11/20/20 Subjective:: Resting in bed. Was less than enthusiastic about getting out of bed and walking yesterday. Will ask physical therapy to evaluate the patient. He will likely need home health with physical therapy and he may need some durable medical equipment such as a walker. Reason For Visit: PNEUMOTHORAX S/P CHEST TUBE INSERTION Physical Exam Vital Signs: Temp Pulse Resp BP Pulse Ox 98.0 F 129 H 20 127/75 H 97 11/20/20 08:03 11/20/20 08:03 11/20/20 08:03 11/20/20 08:03 11/20/20 03:48 Intake & Output 11/19/20 11/20/20 11/21/20 06:59 06:59 06:59 Intake Total 490 240 Output Total 110 Balance 380 240 Weight 48.5 kg 50.2 kg Respiratory exam: PRESENT: clear to auscultation kevyn Cardiovascular exam: PRESENT: RRR, +S1, +S2, systolic murmur GI/Abdominal exam: PRESENT: soft. ABSENT: tenderness Results Laboratory Results: 11/19/20 06:01 11/19/20 06:01 11/16/20 11/16/20 00:29 08:50 Creatine Kinase 124 Troponin I 0.014 Impressions: Cervical Spine CT 11/16/20 01:32 IMPRESSION: No acute fracture or subluxation. Chest CT 11/16/20 01:32 IMPRESSION: Left lower rib fractures with small hydropneumothorax with a chest tube in place. Probable left basilar pulmonary contusion and pneumatocele. Head CT 11/16/20 01:32 IMPRESSION: No acute intracranial findings. Chest X-Ray 11/20/20 06:00 IMPRESSION: Interval development of a small left-sided pleural effusion. Otherwise stable radiographic appearance of the chest. No evidence of recurrent pneumothorax. Assessment and Plan - Diagnosis (1) Traumatic pneumothorax Qualifiers: Encounter type: subsequent encounter Qualified Code(s): S27.0XXD - Traumatic pneumothorax, subsequent encounter Is this a current diagnosis for this admission?: Yes (2) Seizure Is this a current diagnosis for this admission?: Yes (3) Hypertension Is this a current diagnosis for this admission?: Yes (4) Multiple rib fractures Qualifiers: Encounter type: initial encounter Fracture type: closed Laterality: left Qualified Code(s): S22.42XA - Multiple fractures of ribs, left side, initial encounter for closed fracture Is this a current diagnosis for this admission?: Yes (5) Urinary tract infection Qualifiers: Urinary tract infection type: site unspecified Hematuria presence: with hematuria Qualified Code(s): N39.0 - Urinary tract infection, site not specified; R31.9 - Hematuria, unspecified Is this a current diagnosis for this admission?: Yes (6) Pulmonary contusion Qualifiers: Encounter type: initial encounter Laterality: left Qualified Code(s): S27.321A - Contusion of lung, unilateral, initial encounter Is this a current diagnosis for this admission?: Yes (7) Anemia, chronic disease Is this a current diagnosis for this admission?: Yes (8) Hyponatremia Is this a current diagnosis for this admission?: Yes - Plan Summary Summary: (1) Traumatic pneumothorax Qualifiers: Encounter type: initial encounter Qualified Code(s): S27.0XXA - Traumatic pneumothorax, initial encounter Is this a current diagnosis for this admission?: Yes Plan: Secondary to rib fracture from fall from seizure. Chest tube still in place in the left lung. Chest x-ray this morning shows resolution of the pneumothorax. This morning, his chest tube is on waterseal and off suction. I did not notice any air leak. Surgery following to guide determination of chest tube removal. (2) Seizure Is this a current diagnosis for this admission?: Yes Plan: I have increased his Keppra dose from 500 mg to 750 mg twice daily. (3) Hypertension Is this a current diagnosis for this admission?: Yes Plan: Blood pressure is quite elevated today. Notably hypertensive urgency but asymptomatic. Partly could be from pain at the chest tube site. He has medication for pain control. I noticed his amlodipine has not been restarted so I will restart this. Continue hydralazine. (4) Multiple rib fractures Qualifiers: Encounter type: initial encounter Fracture type: closed Laterality: left Qualified Code(s): S22.42XA - Multiple fractures of ribs, left side, initial encounter for closed fracture Is this a current diagnosis for this admission?: Yes Plan: Likely due to injury during seizure episode Symptomatic control (5) Urinary tract infection Qualifiers: Urinary tract infection type: site unspecified Hematuria presence: with hematuria Qualified Code(s): N39.0 - Urinary tract infection, site not specified; R31.9 - Hematuria, unspecified Is this a current diagnosis for this admission?: Yes Plan: Urine culture growing gram-negative rods. Ceftriaxone day 2. (6) Pulmonary contusion Qualifiers: Encounter type: initial encounter Laterality: left Qualified Code(s): S27.321A - Contusion of lung, unilateral, initial encounter Is this a current diagnosis for this admission?: Yes Plan: Probable pulmonary contusion noted in the left basilar lung on the chest CT. Does not seem like there has been any progression on today's chest x-ray. H&H is stable. We can discontinue IV fluids today. Will monitor vital signs closely. (7) Anemia, chronic disease Is this a current diagnosis for this admission?: Yes (8) Hyponatremia Is this a current diagnosis for this admission?: Yes 11/18/2020 Pneumothorax for multiple rib fractures-chest tube has been removed. Follow-up x-ray in several hours. Seizure disorder-on increased dose of Keppra. Continue to monitor. Pulmonary contusion-result of the same fall causing rib fractures. Continue to monitor. Continue to monitor vital signs. Oxygenating very well on room air. Urinary tract infection-sensitive E. coli. Continue Rocephin. Hypertension-continue to monitor blood pressures. Continue amlodipine and hydralazine Anemia-likely anemia of chronic disease. I reviewed previous laboratory studies and the patient appears to be at his baseline. Hyponatremia-very mild. Likely from the acute illness. No acute intervention. Will monitor. 11/19/2020 Pneumothorax-chest tube was removed yesterday. No evidence of pneumothorax. Surgery is signed off. Seizure disorder-currently seizure-free on current dose of Keppra. Pulmonary contusion-no acute intervention at this time. We will continue to monitor. Patient remains on room air. E. coli urinary tract infection-complete antibiotic therapy. Will likely need to complete with oral antibiotics as an outpatient. Hypertension-stable on current medications Hyponatremia-serum sodium is normal today. Continue to monitor. Overall the patient is doing well. I told him that if he is able to walk around, sit up in the chair and function normally he will be able to go home tomorrow.
--- NOTE | 2020-11-20 12:48 | PDOC DISCHARGE SUMMARY ---
Impression - Admit/DC Date/PCP Admission Date/Primary Care Provider: 11/16/20 06:17 PERLA BECK Discharge Date: 11/20/20 - Discharge Diagnosis (1) Traumatic pneumothorax Is this a current diagnosis for this admission?: Yes (2) Seizure Is this a current diagnosis for this admission?: Yes (3) Hypertension Is this a current diagnosis for this admission?: Yes (4) Multiple rib fractures Is this a current diagnosis for this admission?: Yes (5) Urinary tract infection Is this a current diagnosis for this admission?: Yes (6) Pulmonary contusion Is this a current diagnosis for this admission?: Yes (7) Anemia, chronic disease Is this a current diagnosis for this admission?: Yes (8) Hyponatremia Is this a current diagnosis for this admission?: Yes - Assessment Summary: (1) Traumatic pneumothorax Qualifiers: Encounter type: initial encounter Qualified Code(s): S27.0XXA - Traumatic pneumothorax, initial encounter Is this a current diagnosis for this admission?: Yes Plan: Secondary to rib fracture from fall from seizure. Chest tube still in place in the left lung. Chest x-ray this morning shows resolution of the pneumothorax. This morning, his chest tube is on waterseal and off suction. I did not notice any air leak. Surgery following to guide determination of chest tube removal. (2) Seizure Is this a current diagnosis for this admission?: Yes Plan: I have increased his Keppra dose from 500 mg to 750 mg twice daily. (3) Hypertension Is this a current diagnosis for this admission?: Yes Plan: Blood pressure is quite elevated today. Notably hypertensive urgency but asymptomatic. Partly could be from pain at the chest tube site. He has medication for pain control. I noticed his amlodipine has not been restarted so I will restart this. Continue hydralazine. (4) Multiple rib fractures Qualifiers: Encounter type: initial encounter Fracture type: closed Laterality: left Qualified Code(s): S22.42XA - Multiple fractures of ribs, left side, initial encounter for closed fracture Is this a current diagnosis for this admission?: Yes Plan: Likely due to injury during seizure episode Symptomatic control (5) Urinary tract infection Qualifiers: Urinary tract infection type: site unspecified Hematuria presence: with hematuria Qualified Code(s): N39.0 - Urinary tract infection, site not specified; R31.9 - Hematuria, unspecified Is this a current diagnosis for this admission?: Yes Plan: Urine culture growing gram-negative rods. Ceftriaxone day 2. (6) Pulmonary contusion Qualifiers: Encounter type: initial encounter Laterality: left Qualified Code(s): S27.321A - Contusion of lung, unilateral, initial encounter Is this a current diagnosis for this admission?: Yes Plan: Probable pulmonary contusion noted in the left basilar lung on the chest CT. Does not seem like there has been any progression on today's chest x-ray. H&H is stable. We can discontinue IV fluids today. Will monitor vital signs cl osely. (7) Anemia, chronic disease Is this a current diagnosis for this admission?: Yes (8) Hyponatremia Is this a current diagnosis for this admission?: Yes 11/18/2020 Pneumothorax for multiple rib fractures-chest tube has been removed. Follow-up x-ray in several hours. Seizure disorder-on increased dose of Keppra. Continue to monitor. Pulmonary contusion-result of the same fall causing rib fractures. Continue to monitor. Continue to monitor vital signs. Oxygenating very well on room air. Urinary tract infection-sensitive E. coli. Continue Rocephin. Hypertension-continue to monitor blood pressures. Continue amlodipine and hydralazine Anemia-likely anemia of chronic disease. I reviewed previous laboratory studies and the patient appears to be at his baseline. Hyponatremia-very mild. Likely from the acute illness. No acute intervention. Will monitor. 11/19/2020 Pneumothorax-chest tube was removed yesterday. No evidence of pneumothorax. Surgery is signed off. Seizure disorder-currently seizure-free on current dose of Keppra. Pulmonary contusion-no acute intervention at this time. We will continue to monitor. Patient remains on room air. E. coli urinary tract infection-complete antibiotic therapy. Will likely need to complete with oral antibiotics as an outpatient. Hypertension-stable on current medications Hyponatremia-serum sodium is normal today. Continue to monitor. Overall the patient is doing well. I told him that if he is able to walk around, sit up in the chair and function normally he will be able to go home tomorrow. 11/20/2020 The patient's daughter is at the bedside. We discussed discharge disposition. The patient lives with the daughter and family. There is significant support at home. I explained that we are focused on mobility and she explained that the patient is resistant to activity at home and not just in the hospital. She states that he already has a walker. They try and encourage movement and activity. In fact when she is out of the house he tends to get up and move around, mostly because she has some not to. She is comfortable with discharged home. We will establish home health to continue therapy at home, monitor for any signs of recurrent pneumothorax and monitor for any recurrent seizure activity. - Additional Information Resuscitation Status: Full Code Referrals: [facility] [Provider Group] - 12/04/20 3:00 pm [facility] [Outside] - 11/21/20 (Start of care will be Tuesday. ) Prescriptions: Cephalexin Monohydrate [Keflex 250 mg Capsule] 250 mg PO BID 4 Days #8 capsule Levetiracetam [Roweepra] 750 mg PO BID 15 Days #30 tablet Home Medications: Amlodipine Besylate [Norvasc 10 mg Tablet] 10 mg PO DAILY 11/16/20 Atorvastatin Calcium [Lipitor 20 mg Tablet] 20 mg PO QHS 11/16/20 Cetirizine HCl [Zyrtec 10 mg Tablet] 10 mg PO DAILY 11/16/20 Fluoxetine HCl 10 mg PO DAILY 11/16/20 Hydralazine HCl [Apresoline 25 mg Tablet] 25 mg PO BID 11/16/20 Cephalexin Monohydrate [Keflex 250 mg Capsule] 250 mg PO BID 4 Days #8 capsule 11/20/20 Docusate Sodium [Colace 100 mg Capsule] 100 mg PO BID capsule 11/20/20 Levetiracetam [Roweepra] 750 mg PO BID 15 Days #30 tablet 11/20/20 History of Present Illiness History of Present Illness: MELBA MCKEON JR is a 75 year old male with a history of seizure disorder and hypertension who presents to the ED with a plan episode of witnessed seizure. Patient was noted to have an episode of seizure which lasted for about 3 to 5 minutes while she was sitting on his chair last night pain daughter called EMS immediately and was brought into the emergency department for further evaluation. On arrival to the ED patient was in a postictal phase that few minutes later he came back to his baseline according to his daughter was at his bedside. His daughter stated that patient never had a fall, head injury, or vomiting. During further evaluation at the ED patient was noted to have low oxygen saturation of in the mid 80s while in room air but he was not in respiratory distress, was not using accessory respiratory muscles and his other vital signs where stable. He had decreased air entry on the left hemichest and there was concern for possible aspiration during the episode of seizure and chest x-ray was obtained for further evaluation. Chest x-ray showed large left- sided pneumothorax involving about 60% and chest tube was inserted by surgery at the ED. Follow-up chest x-ray done showed interval expansion of his lungs. Currently patient is alert and oriented but unable to give detailed history due to sedation hold anesthesia used for procedure. He denies shortness of breath, dizziness, palpitation, nausea or vomiting. He is requiring 2 L intranasal oxygen to maintain a saturation of around mid 90s. Hospital Course Hospital Course: As above Physical Exam Vital Signs: Temp Pulse Resp BP Pulse Ox 98.0 F 129 H 20 127/75 H 97 11/20/20 08:03 11/20/20 08:03 11/20/20 08:03 11/20/20 08:03 11/20/20 03:48 Intake & Output 11/19/20 11/20/20 11/21/20 06:59 06:59 06:59 Intake Total 490 240 Output Total 110 Balance 380 240 Weight 48.5 kg 50.2 kg General appearance: PRESENT: no acute distress Respiratory exam: PRESENT: clear to auscultation kevyn, symmetrical, unlabored. ABSENT: rales, rhonchi, tachypnea, wheezes Cardiovascular exam: PRESENT: RRR, +S1, +S2 GI/Abdominal exam: PRESENT: normal bowel sounds, soft. ABSENT: tenderness Extremities exam: PRESENT: other - Cast on right wrist Musculoskeletal exam: PRESENT: other - Decreased muscle mass Neurological exam: PRESENT: alert, awake, oriented to person, oriented to place, oriented to situation Psychiatric exam: PRESENT: appropriate affect. ABSENT: agitated, anxious Results Laboratory Results: WBC 6.1 10^3/uL (4.0-10.5) 11/19/20 06:01 RBC 4.32 10^6/uL (4.35-5.55) L 11/19/20 06:01 Hgb 11.6 g/dL (13.5-17.0) L 11/19/20 06:01 Hct 35.3 % (37.9-51.0) L 11/19/20 06:01 MCV 82 fl (80-97) 11/19/20 06:01 MCH 26.8 pg (27.0-33.4) L 11/19/20 06:01 MCHC 32.8 g/dL (32.0-36.0) 11/19/20 06:01 RDW 15.8 % (11.5-14.0) H 11/19/20 06:01 Plt Count 205 10^3/uL (150-450) 11/19/20 06:01 Lymph % (Auto) 34.4 % (13-45) 11/19/20 06:01 [place] % (Auto) 11.5 % (3-13) 11/19/20 06:01 Eos % (Auto) 6.5 % (0-6) H 11/19/20 06:01 Baso % (Auto) 2.0 % (0-2) 11/19/20 06:01 Absolute Neuts (auto) 2.8 10^3/uL (1.7-8.2) 11/19/20 06:01 Absolute Lymphs (auto) 2.1 10^3/uL (0.5-4.7) 11/19/20 06:01 Absolute Monos (auto) 0.7 10^3/uL (0.1-1.4) 11/19/20 06:01 Absolute Eos (auto) 0.4 10^3/uL (0.0-0.6) 11/19/20 06:01 Absolute Basos (auto) 0.1 10^3/uL (0.0-0.2) 11/19/20 06:01 Total Counted 100 11/16/20 08:50 Seg Neutrophils % 45.6 % (42-78) 11/19/20 06:01 Seg Neuts % (Manual) 83 % (42-78) H 11/16/20 08:50 Band Neutrophils % 9 % (3-5) H 11/16/20 08:50 Lymphocytes % (Manual) 4 % (13-45) L 11/16/20 08:50 Atypical Lymphs % 1 % (0) 11/16/20 08:50 Monocytes % (Manual) 3 % (3-13) 11/16/20 08:50 Eosinophils % (Manual) 0 % (0-6) 11/16/20 08:50 Basophils % (Manual) 0 % (0-2) 11/16/20 08:50 Abs Neuts (Manual) 17.3 10^3/uL (1.7-8.2) H 11/16/20 08:50 Abs Lymphs (Manual) 0.9 10^3/uL (0.5-4.7) 11/16/20 08:50 Abs Monocytes (Manual) 0.6 10^3/uL (0.1-1.4) 11/16/20 08:50 Absolute Eos (Manual) 0.0 10^3/uL (0.0-0.6) 11/16/20 08:50 Abs Basophils (Manual) 0.0 10^3/uL (0.0-0.2) 11/16/20 08:50 Platelet Comment ADEQUATE 11/16/20 08:50 Anisocytosis 1+ 11/16/20 08:50 Ovalocytes 1+ 11/16/20 08:50 Carbonic Acid 1.01 mmol/L (1.05-1.35) L 11/15/20 23:23 HCO3/H2CO3 Ratio 21:1 11/15/20 23:23 ABG pH 7.42 (7.35-7.45) 11/15/20 23:23 ABG pCO2 33.7 mmHg (35-45) L 11/15/20 23:23 ABG pO2 63.3 mmHg (80-100) L 11/15/20 23:23 ABG HCO3 21.3 mmol/L (20-24) 11/15/20 23:23 ABG Total CO2 22.4 mmol/L (23-27) L 11/15/20 23:23 ABG O2 Saturation 92.8 % (94-98) L 11/15/20 23:23 ABG Base Excess -2.5 mmol/L 11/15/20 23:23 FiO2 4 L 11/15/20 23:23 Sodium 138.2 mmol/L (137-145) 11/19/20 06:01 Potassium 3.7 mmol/L (3.6-5.0) 11/19/20 06:01 Chloride 100 mmol/L (98-107) 11/19/20 06:01 Carbon Dioxide 33 mmol/L (22-30) H 11/19/20 06:01 Anion Gap 5 (5-19) 11/19/20 06:01 BUN 12 mg/dL (7-20) 11/19/20 06:01 Creatinine 0.81 mg/dL (0.52-1.25) 11/19/20 06:01 Est GFR ( Amer) > 60 (>60) 11/19/20 06:01 Est GFR (Non-Af Amer) Cancelled 11/17/20 07:22 Est GFR (MDRD) Non-Af > 60 (>60) 11/19/20 06:01 Glucose 84 mg/dL (75-110) 11/19/20 06:01 Calcium 8.5 mg/dL (8.4-10.2) 11/19/20 06:01 Magnesium 2.2 mg/dL (1.6-2.3) 11/19/20 06:01 Total Bilirubin 0.4 mg/dL (0.2-1.3) 11/16/20 08:50 Direct Bilirubin 0.2 mg/dL (0.0-0.4) 11/16/20 08:50 Neonat Total Bilirubin Not Reportable 11/16/20 08:50 Neonat Direct Bilirubin Not Reportable 11/16/20 08:50 Neonat Indirect Bili Not Reportable 11/16/20 08:50 AST 25 U/L (17-59) 11/16/20 08:50 ALT 18 U/L (<50) 11/16/20 08:50 Alkaline Phosphatase 85 U/L (38-126) 11/16/20 08:50 Creatine Kinase 124 U/L (55-170) 11/16/20 08:50 Troponin I 0.014 ng/mL 11/16/20 00:29 Total Protein 6.0 g/dL (6.3-8.2) L 11/16/20 08:50 Albumin 2.9 g/dL (3.5-5.0) L 11/16/20 08:50 EGFR Cancelled 11/17/20 07:22 Urine Color YELLOW 11/16/20 03:54 Urine Appearance CLOUDY 11/16/20 03:54 Urine pH 5.0 (5.0-9.0) 11/16/20 03:54 Ur Specific [place] 1.033 11/16/20 03:54 Urine Protein 30 mg/dL (NEGATIVE) H 11/16/20 03:54 Urine Glucose (UA) NEGATIVE mg/dL (NEGATIVE) 11/16/20 03:54 Urine Ketones NEGATIVE mg/dL (NEGATIVE) 11/16/20 03:54 Urine Blood LARGE (NEGATIVE) H 11/16/20 03:54 Urine Nitrite POSITIVE (NEGATIVE) H 11/16/20 03:54 Urine Bilirubin NEGATIVE (NEGATIVE) 11/16/20 03:54 Urine Urobilinogen NEGATIVE mg/dL (<2.0) 11/16/20 03:54 Ur Leukocyte Esterase SMALL (NEGATIVE) H 11/16/20 03:54 Urine WBC (Auto) 39 /HPF 11/16/20 03:54 Urine RBC (Auto) >182 /HPF 11/16/20 03:54 U Hyaline Cast (Auto) 4 /LPF 11/16/20 03:54 Urine Bacteria (Auto) 2+ /HPF 11/16/20 03:54 Squamous Epi Cells Auto 4 /HPF 11/16/20 03:54 Urine Mucus (Auto) MANY /LPF 11/16/20 03:54 Urine Ascorbic Acid NEGATIVE (NEGATIVE) 11/16/20 03:54 Levetiracetam <1.0 ug/mL (10.0-40.0) L 11/16/20 00:29 Serum Alcohol < 10 mg/dL (NONE DETECTED) 11/16/20 00:29 11/16/20 00:29 Troponin I 0.014 Impressions: Chest X-Ray 11/15/20 23:59 IMPRESSION: 1. Large left pneumothorax, estimated 60%. No mediastinal shift. Chest X-Ray 11/16/20 01:29 IMPRESSION: 1. New left chest tube in place with resolution of left pneumothorax. 2. Continued left lower lung atelectasis and/or pneumonia. 3. Rounded lucency in the left lower lung that may represent a bulla or cavitary abnormality. Consider CT follow-up. Cervical Spine CT 11/16/20 01:32 IMPRESSION: No acute fracture or subluxation. Chest CT 11/16/20 01:32 IMPRESSION: Left lower rib fractures with small hydropneumothorax with a chest tube in place. Probable left basilar pulmonary contusion and pneumatocele. Head CT 11/16/20 01:32 IMPRESSION: No acute intracranial findings. Chest X-Ray 11/17/20 00:00 IMPRESSION: There is no change in the appearance of the chest. Chest X-Ray 11/17/20 07:00 IMPRESSION: STABLE APPEARANCE OF THE CHEST. Chest X-Ray 11/18/20 07:00 IMPRESSION: No significant interval change. Chest X-Ray 11/18/20 12:30 IMPRESSION: Minimal left apical pneumothorax status post chest tube removal. Chest X-Ray 11/19/20 06:00 IMPRESSION: No significant residual pneumothorax. No evidence of acute cardiopulmonary abnormality. Chest X-Ray 11/20/20 06:00 IMPRESSION: Interval development of a small left-sided pleural effusion. Otherwise stable radiographic appearance of the chest. No evidence of recurrent pneumothorax. Plan Health Concerns: Frail elderly gentleman with recent seizure activity and full causing multiple fractures including ribs with subsequent pneumothorax. Plan of Treatment: Pneumothorax has resolved. Plan to discharge home with home health to monitor patient as well as provide physical therapy. Goals: Not only returned to baseline but hopefully with physical therapy improve his activity level at home. Time Spent: Greater than 30 Minutes Stroke Is this a Stroke Patient?: No Acute Heart Failure Is this a Heart Failure Patient?: No
[2020-11-20 14:13] VITALS: BP 138/63
[2020-11-20] MEDS ORDERED: INFLUENZA QUAD (6MOS+) 2020-21 VAC 0.5 ML SYR IM ONE (14:30)
[2020-11-21] MEDS ORDERED: INFLUENZA QUAD (6MOS+) 2020-21 VAC 0.5 ML SYR IM ONE (08:00)
== END 2020-11-20 14:55 | disposition home health service (06) | DRG 200 ==
LOC: ER 23:01 → EH 11-16 06:17 → 3W 11-16 11:56
PROVIDERS: ADMIT Student in an Organized Health Care Education/Training Program; ATTEND Hospitalist
PROC: 0W9B00Z Drainage of Left Pleural Cavity with Drainage Device, Open Approach (ICD-10-PCS; principal; 2020-11-16)
DX: S27.0XXA Traumatic pneumothorax, initial encounter (principal); S22.42XA Multiple fractures of ribs, left side, initial encounter for closed fracture; E87.1 Hypo-osmolality and hyponatremia; N39.0 Urinary tract infection, site not specified; S27.321A Contusion of lung, unilateral, initial encounter; G40.909 Epilepsy, unspecified, not intractable, without status epilepticus; Z78.1 Physical restraint status; B96.20 Unspecified Escherichia coli [E. coli] as the cause of diseases classified elsewhere; I10 Essential (primary) hypertension; D63.8 Anemia in other chronic diseases classified elsewhere; W18.30XA Fall on same level, unspecified, initial encounter; I16.0 Hypertensive urgency; R31.9 Hematuria, unspecified; E78.5 Hyperlipidemia, unspecified; Z79.899 Other long term (current) drug therapy; Z87.891 Personal history of nicotine dependence
CPT/HCPCS: 36415; 70450; 71045; 71260; 72125; 80048; 80053; 80177; 80307; 81001; 82550; 82803; 82962; 83735; 84484; 85025; 85027; 87040; 87070; 87086; 87088; 87186; 94799; 96361; 96365; 96367; 99285; J0696; J1650; J1953; J3490; J7030; J7050; J7060; J7120